=== PATIENT | female | born 1990 | race Caucasian/White ===

== ENCOUNTER → 2016-07-15 | Outpatient (REF) | payer OTHER ==
[~2016-07-15] MED LIST: ACET50TA PO; IBUP80TA PO; PRENTAB43 PO
== END ==
LOC: M LAB REF 16:51
PROVIDERS: ATTEND Advanced Practice Midwife
DX: Z34.83 Encounter for supervision of other normal pregnancy, third trimester (principal)

== ENCOUNTER 2016-08-06 00:33 | Inpatient (IN) | payer OTHER ==
[2016-08-06] VITALS (24 sets, daily range): BP systolic 99–144; BP diastolic 59–86
[~2016-08-06] VITALS: Ht 152.4 cm; Wt 82.0 kg
[2016-08-06] MEDS ORDERED: BENA25TA9 PO (00:59)
[2016-08-06] MEDS ORDERED: LR 1,000 ML IV SCH (01:15)
[2016-08-06] MEDS ORDERED: LACTATED RINGER'S 1000 ML IV STA (01:15)
[2016-08-06 01:39] LABS: MEAN CORPUSCULAR HGB CONC 30.1 g/dl (32.0-36.5); MEAN CORPUSCULAR VOLUME 66.4 fl (80.0-96.0); RED CELL DISTRIBUTION WIDTH 17.7 % (11.5-14.5); WHITE BLOOD COUNT 9.8 K/mm3 (4.0-10.0)
[2016-08-06] MEDS ORDERED: FENTANYL 2MCG/ML ROPIVACAINE 0.2% NACL 250 ML CADD As Ordered ONE (01:41)
--- NOTE | 2016-08-06 01:53 | HPE ---
DATE OF ADMISSION: 08/06/2016 The patient is a 25-year-old 2, para 1-0-0-1 at 39-4/7 weeks gestation with an EDC of 08/09/2016, based on first trimester ultrasound. She presents to labor and delivery today with report of onset of uncomfortable contractions at approximately 21:30. She denies vaginal bleeding and leakage of fluid. Her fetus has been active. care was initiated at [facility] at first trimester. course has been complicated by a history of depression with a desire to start antidepressants immediately . OBSTETRICAL HISTORY: November 12, 2014, at 40 weeks gestation she had a spontaneous vaginal delivery for a 7 pound 6 ounce female. OB LABS: Blood type is AB positive, antibody screen negative, rubella immune, VDRL nonreactive. Hepatitis B surface antigen negative, HIV negative. Hepatitis C nonreactive. Gonorrhea, Chlamydia negative. Gestational diabetic screening 137. GBS is negative. PAST MEDICAL HISTORY: depression, childhood asthma, childhood varicella. FAMILY HISTORY: Hypertension. SURGERIES: Dental surgery. SOCIAL HISTORY: The patient is single. Father of baby is at bedside and supportive. She is a nonsmoker. Denies alcohol and drug use and denies history of abuse physical, sexual and emotional. No history of any sexually transmitted infections. ALLERGIES: No known drug allergies. CURRENT MEDICATIONS: Include vitamins and Colace. OBJECTIVE: Temperature 98.6, pulse 111, respirations 18, BP 120/82. The patient is in distress. She is tense and crying with her contractions. heart rate is 135 with moderate variability, positive accelerations, no decelerations noted, power every 2-4 minutes. Her abdomen is gravid, cephalic presentation, 7.5 to 8 pounds estimated weight. Sterile vaginal exam: 6 cm dilated, 100% effaced, minus two station. ASSESSMENT: 1. Intrauterine at 39-4/7 weeks gestation. 2. heart rate category one. 3. Active labor. PLAN: Admit the patient to labor and delivery. Labs as ordered. Out of bed ad pauly. IV fluid bolus as the patient does desire an epidural for her labor coping. I do anticipate progress and normal spontaneous vaginal delivery.
[2016-08-06] MEDS ORDERED: FENTANYL/ROPIVACAINE/NACL CADD 250 ML EPIDURAL SCH (03:00)
[2016-08-06] MEDS ORDERED: ePHEDrine SULFATE 25 MG/5 ML(5MG/ML) SYRINGE IV PRN (03:00)
[2016-08-06] MEDS ORDERED: EPIDURAL COMMENT XX SCH (03:00)
[2016-08-06] MEDS ORDERED: NALOXONE INJ 0.4 MG/1 ML VIAL (J2310) IV PRN (03:00)
[2016-08-06] MEDS ORDERED: diphenhydrAMINE INJ 50MG/ML VIAL (J1200) IV PRN (03:00)
[2016-08-06] MEDS ORDERED: LACTATED RINGER'S 1000 ML IV PRN (03:00)
[2016-08-06] MEDS ORDERED: EPIDURAL/PCA KEYS XX PRN (03:00)
[2016-08-06] MEDS ORDERED: REFRIGERATOR IV KEYS XX PRN (03:00)
[2016-08-06] MEDS ORDERED: ONDANSETRON 4MG/2ML VIAL (J2405) IV PRN (03:00)
[2016-08-06] MEDS ORDERED: OXYTOCIN 30 UNITS IN 0.9% NaCl 500ML IV BAG (J2590) As Ordered ONE ×2 (03:27→03:28)
[2016-08-06] MEDS ORDERED: OXYTOCIN DRIP 30 UNITS in APPROPRIATE DILUENT 1 EA IV SCH (04:34)
[2016-08-06] MEDS ORDERED: ANUSOL HC CREAM 30GM TOP PRN (04:45)
[2016-08-06] MEDS ORDERED: DIBUCAINE 1% OINTMENT 30GM TOP PRN (04:45)
[2016-08-06] MEDS ORDERED: MEASLES,MUMPS,RUBELLA VACCINE INJ (MMR-II) (90707) SC SCH (04:45)
[2016-08-06] MEDS ORDERED: DOCUSATE SODIUM 100 MG CAP PO PRN (04:45)
[2016-08-06] MEDS ORDERED: RHOGAM 300 MCG (1500 IU) INJ (J2790) IM SCH (04:45)
[2016-08-06] MEDS ORDERED: METHYLERGONOVINE MALEATE 0.2 MG TAB PO PRN (04:45)
--- NOTE | 2016-08-06 05:12 | DN ---
DATE: 08/06/2016 Jennifer is a 25-year-old, 2, para 2-0-0-2 now, who is admitted to labor and delivery in active labor. She utilized an epidural for her labor coping. She progressed to full dilation at 0330 hours. She pushed to a normal spontaneous vaginal delivery of a live female in occiput anterior (OA) position with restitution to left occiput transverse (LOT) position at 0402 hours. There is a nuchal cord times two loose that was removed with a somersault maneuver during delivery. was placed on maternal abdomen crying and active. Her mouth and nares were bulb suctioned. The cord was clamped times two once pulsation ceased and cut by the father of the baby. A manual removal of an intact placenta with three-vessel cord by Paz mechanism was at 0418 hours. Placenta and membranes were inspected, noted to be intact. Uterine hemostasis achieved with uterine fundal massage and intravenous (IV) Pitocin rapid infusion. Estimated blood loss 300 mL. Perineum and vagina inspected and noted to be intact. No repair required. Female infant, score 9/9, weight is pending at this time. Mom is going to breastfeed her daughter and the family have named their daughter Marcia. At the close of delivery, lap counts, instrument counts were correct and verified. [facility]
[2016-08-06] MEDS: PRENATAL VITAMIN TAB PO SCH (08:09)
[2016-08-06] MEDS: buPROPion 75 MG TAB PO SCH (08:10)
[2016-08-06] MEDS: IBUPROFEN 600 MG TAB PO PRN ×2 (08:10→17:47)
[2016-08-06] MEDS: SERTRALINE HCL 50 MG TAB PO SCH (08:10)
[2016-08-06] MEDS: ACETAMINOPHEN 500 MG TAB PO PRN ×2 (12:47→19:34)
[2016-08-07] MEDS ORDERED: diphenhydrAMINE 50 MG CAP PO PRN
[2016-08-07] MEDS: ACETAMINOPHEN 500 MG TAB PO PRN (01:38)
[2016-08-07] MEDS: IBUPROFEN 600 MG TAB PO PRN ×2 (01:38→08:18)
[2016-08-07 06:16] VITALS: BP 122/82
[2016-08-07] MEDS: PRENATAL VITAMIN TAB PO SCH (08:17)
[2016-08-07] MEDS: buPROPion 75 MG TAB PO SCH (08:18)
[2016-08-07] MEDS: SERTRALINE HCL 50 MG TAB PO SCH (08:19)
[2016-08-07] MEDS ORDERED: ZOLO50TA PO (08:39)
[2016-08-07] MEDS ORDERED: WELLTAB38 PO (10:31)
[2016-08-07] MEDS ORDERED: BENA25TA9 PO (10:38)
== END 2016-08-07 13:00 | disposition home or self-care (01) | DRG 560 ==
LOC: M LDO 00:33 → M LDI 01:13 → M OBS 06:23
PROVIDERS: ADMIT Advanced Practice Midwife; ATTEND Advanced Practice Midwife
PROC: 10E0XZZ Delivery of Products of Conception, External Approach (ICD-10-PCS; principal; 2016-08-06)
DX: O69.81X0 Labor and delivery complicated by cord around neck, without compression, not applicable or unspecified (principal); Z37.0 Single live birth; Z3A.39 39 weeks gestation of pregnancy

== ENCOUNTER 2016-08-09 11:37 | Inpatient (IN) | payer OTHER ==
[~2016-08-09] VITALS: Ht 154.9 cm; Wt 80.0 kg
[~2016-08-09 11:37] MED LIST changes: +BENA25TA9 PO; +WELLTAB38 PO; +ZOLO50TA PO
[2016-08-09] MEDS ORDERED: ACETAMINOPHEN 500 MG TAB PO PRN (12:00)
[2016-08-09] MEDS ORDERED: MORPHINE 10 MG/ML 1ML VIAL IV PRN (12:00)
[2016-08-09 12:10] VITALS: BP 124/80
[2016-08-09 12:53] LABS: MEAN CORPUSCULAR VOLUME 66.8 fl (80.0-96.0); RED CELL DISTRIBUTION WIDTH 18.4 % (11.5-14.5); WHITE BLOOD COUNT 9.1 K/mm3 (4.0-10.0)
[2016-08-09] MEDS: LR 1,000 ML IV SCH ×2 (13:22→20:41)
[2016-08-09] MEDS: IBUPROFEN 800 MG TAB PO SCH ×2 (13:23→20:41)
[2016-08-09 13:24] LABS: ALBUMIN 2.6 GM/DL (3.2-5.2); ALKALINE PHOSPHATASE 194 U/L (45-117); ALT/SGPT 17 U/L (12-78); ANION GAP 11 MEQ/L (8-16); AST/SGOT 17 U/L (15-37); BILIRUBIN,TOTAL 0.2 MG/DL (0.2-1.0); BLOOD UREA NITROGEN 6 MG/DL (7-18); CALCIUM LEVEL 8.8 MG/DL (8.5-10.1); CARBON DIOXIDE LEVEL 26 MEQ/L (21-32); CHLORIDE LEVEL 104 MEQ/L (98-107); CREATININE FOR GFR 0.72 MG/DL (0.55-1.02); GLOMERULAR FILTRATION RATE > 60.0 (>60); GLUCOSE, FASTING 87 MG/DL (70-105); POTASSIUM SERUM 4.2 MEQ/L (3.5-5.1); SODIUM LEVEL 141 MEQ/L (136-145); TOTAL PROTEIN 7.8 GM/DL (6.4-8.2)
--- NOTE | 2016-08-09 13:39 | REP ---
PELVIC SONOGRAPHY: HISTORY: endometritis. Question retained products of conception. Status post vaginal delivery August 06, 2016. FINDINGS: Transabdominal scanning demonstrates uterine enlargement as expected post prior. Uterine dimensions are 14.7 x 7.7 x 11.8 cm. Endometrial echo is 0.4 cm thick in the fundus and 1.9 cm thick at mid uterine level. No echogenic material or vascular material is appreciated. Endometrium is somewhat heterogeneous, however. No free fluid is seen. The left ovary could not be seen. Right ovary is normal measuring 2.8 x 1.6 x 1.9 cm. IMPRESSION: Somewhat thickened endometrium but no finding suspicious for retained products of conception seen. Signed by Farzad Nieto MD 08/09/2016 02:35 P
[2016-08-09] MEDS: CLINDAMYCIN 900 MG in APPROPRIATE DILUENT 1 EA IV SCH ×2 (14:03→21:28)
[2016-08-09] MEDS: PERCOCET 5MG/325MG TAB PO PRN ×3 (14:34→23:55)
[2016-08-09] MEDS ORDERED: GENTAMICIN 120 MG in D5W 50 ML IV ONE (15:00)
[2016-08-09 16:00] VITALS: BP 123/74
[2016-08-09 20:00] VITALS: BP 131/86
[2016-08-09] MEDS: FERROUS SULFATE 325MG TAB PO SCH (20:41)
[2016-08-09] MEDS: GENTAMICIN 80 MG in APPROPRIATE DILUENT 1 EA IV SCH (23:54)
[2016-08-10] VITALS: BP 130/96
[2016-08-10] MEDS: IBUPROFEN 800 MG TAB PO SCH ×2 (05:37→13:39)
[2016-08-10] MEDS: LR 1,000 ML IV SCH ×2 (05:37→13:55)
[2016-08-10] MEDS: CLINDAMYCIN 900 MG in APPROPRIATE DILUENT 1 EA IV SCH ×2 (05:37→14:29)
[2016-08-10] MEDS: PERCOCET 5MG/325MG TAB PO PRN ×2 (06:58→15:40)
[2016-08-10] MEDS: GENTAMICIN 80 MG in APPROPRIATE DILUENT 1 EA IV SCH ×2 (06:59→15:37)
[2016-08-10 08:00] VITALS: BP 142/88
[2016-08-10] MEDS: FERROUS SULFATE 325MG TAB PO SCH (09:10)
[2016-08-10] MEDS ORDERED: IBUP600T26 PO (14:37)
[2016-08-10] MEDS ORDERED: FERR325T PO (14:38)
[2016-08-10] MEDS ORDERED: COLA100C PO (14:39)
[2016-08-10] MEDS ORDERED: ZOLO50TA PO (14:44)
[2016-08-10] MEDS ORDERED: WELLTAB38 PO (14:45)
--- NOTE | 2016-08-31 10:29 | DSES ---
DATE OF ADMISSION: 08/09/2016 DATE OF DISCHARGE: 08/10/2016 ADMISSION DIAGNOSIS: endometritis. DISCHARGE DIAGNOSIS: endometritis, clinically improved DISCHARGE SUMMARY: The patient was admitted as a 25-year-old G2, P2 3 days , status post spontaneous vaginal delivery which was notable for manual removal of placenta. This occurred since 08/06/2016. She complained of severe pelvic pain on 08/09 along with fever and diaphoresis. She reported a fever at 6:30 in the morning of 08/06 with a temperature reading of 101.2 Fahrenheit. The patient was treating her pain with Tylenol and ibuprofen. She was also reporting passing small blood clots and increased bleeding over the course of the morning. She was breast-feeding. She denied any shortness breath, chest pain. Given the clinical findings consistent with endometrial, the decision was made perform pelvic ultrasound. Pelvic ultrasound revealed a somewhat thickened endometrium measuring 1.9 cm thick. No echogenic material or vascular material was appreciated on the pelvic ultrasound. There was no finding suspicious for retained products of conception. Her white blood cell count was 9.1, hemoglobin/hematocrit 8.2 and 27.5, platelet count 526. She was admitted and started on IV antibiotics. She was given clindamycin 900 mg every 8 hours and gentamicin 80 mg every 8 hours. Her pain significantly improved over the course of her admission. She was discharged home with routine fever, infectious, pain and bleeding precautions. She was restarted on Wellbutrin for her history of depression as well as Zoloft 50 mg daily. She was given instructions to follow up in the clinic routine or sooner as needed.
== END 2016-08-10 16:50 | disposition home or self-care (01) | DRG 561 ==
LOC: PREOBSVTOIN 12:05 → M PED 12:09
PROVIDERS: ADMIT Specialist; ATTEND Specialist
DX: O86.12 Endometritis following delivery (principal); O99.345 Other mental disorders complicating the puerperium; F53 Mental and behavioral disorders associated with the puerperium, not elsewhere classified

== ENCOUNTER 2016-08-16 20:49 | Emergency (ER) | payer OTHER, SELFPAY ==
[~2016-08-16 20:49] MED LIST changes: +COLA100C PO; +FERR325T PO; +IBUP600T26 PO
[2016-08-16] MEDS ORDERED: IBUPROFEN 600 MG TAB As Ordered ONE (21:07)
[2016-08-16] MEDS ORDERED: ACETAMINOPHEN 325 MG TAB As Ordered ONE (21:08)
[2016-08-16 23:43] LABS: BASO % 0.2 % (0.0-1.0); EOS # 0.1 K/mm3 (0.0-0.50); EOS % 0.7 % (0.0-3.0); LARGE UNSTAINED CELL # 0.1 K/mm3 (0.0-0.4); LARGE UNSTAINED CELL % 0.6 % (0.0-4.0); LYMPH # 0.6 K/mm3 (1.5-6.5); LYMPH % 4.2 % (24.0-44.0); MEAN CORPUSCULAR HEMOGLOBIN 20.2 pg (27.0-33.0); MEAN CORPUSCULAR HGB CONC 29.3 g/dl (32.0-36.5); MEAN CORPUSCULAR VOLUME 68.7 fl (80.0-96.0); MONO # 0.3 K/mm3 (0.0-0.8); MONO % 2.7 % (0.0-5.0); NEUTROPHILS # 11.1 K/mm3 (1.8-7.7); NEUTROPHILS % 91.7 % (36.0-66.0); PLATELET COUNT, AUTOMATED 499 k/mm3 (150-450); RED CELL DISTRIBUTION WIDTH 19.6 % (11.5-14.5); WHITE BLOOD COUNT 12.1 K/mm3 (4.0-10.0)
[2016-08-16 23:47] LABS: ADD MORPHOLOGY? YES
[2016-08-16 23:52] LABS: ALBUMIN 3.2 GM/DL (3.2-5.2); ALBUMIN/GLOBULIN RATIO 0.59 (1.00-1.93); ALKALINE PHOSPHATASE 150 U/L (45-117); ALT/SGPT 16 U/L (12-78); ANION GAP 15 MEQ/L (8-16); AST/SGOT 14 U/L (15-37); BILIRUBIN,DIRECT 0.1 MG/DL (0.0-0.2); BILIRUBIN,TOTAL 0.4 MG/DL (0.2-1.0); BLOOD UREA NITROGEN 10 MG/DL (7-18); CALCIUM LEVEL 8.8 MG/DL (8.5-10.1); CARBON DIOXIDE LEVEL 19 MEQ/L (21-32); CHLORIDE LEVEL 102 MEQ/L (98-107); CREATININE FOR GFR 0.93 MG/DL (0.55-1.02); GLOMERULAR FILTRATION RATE > 60.0 (>60); GLUCOSE, FASTING 103 MG/DL (70-105); POTASSIUM SERUM 3.2 MEQ/L (3.5-5.1); SODIUM LEVEL 136 MEQ/L (136-145); TOTAL PROTEIN 8.6 GM/DL (6.4-8.2)
[2016-08-17] MEDS ORDERED: POTASSIUM CHLORIDE 10 MEQ SR TABLET As Ordered ONE (00:09)
[2016-08-17] MEDS ORDERED: METAL LOCK LOOP XX ONE (00:09)
[2016-08-17 00:14] LABS: ANISOCYTOSIS 2+; HYPOCHROMASIA 3+; OVALOCYTES 1+
--- NOTE | 2016-08-17 00:30 | REPUSA ---
Clinical history: Breast pain. Findings: Real-time ultrasound imaging of the right breast from the 9-1 o'clock position was performe d. Normal heterogeneous fibroglandular tissue is noted. No focal defined mass or cystic lesion is tyra reciated. No evidence of calcifications are appreciated. No other gross abnormalities. Impression: Unremarkable ultrasound examination of the right breast. No mass or fluid collection iden tified. BIRAD 1: Normal study.
[2016-08-17] MEDS ORDERED: ISOVUE-370 76% 100ML VIAL (Q9967) As Ordered ONE (00:38)
--- NOTE | 2016-08-17 01:10 | REPUSA ---
CT angiogram of the chest Clinical statement: shortness of breath. Technique: Multiple axial CT images were obtained from the thoracic inlet through the upper abdomen a fter a bolus administration of nonionic intravenous contrast. Coronal and sagittal reconstructions we re also obtained. No comparison is available. Findings: The pulmonary arteries are well-opacified with contrast, with no intraluminal filling defec ts to suggest embolism. The thoracic aorta is unremarkable. Thyroid gland is within normal limits. Th ere is no thoracic lymphadenopathy. There are no pericardial or pleural effusions. The lungs are zarina r. Limited imaging of the upper abdomen is unremarkable. There are no suspicious osseous lesions. Impression: Unremarkable CT examination of the chest. No evidence of pulmonary embolism.
[2016-08-17] MEDS ORDERED: NORCO, ANEXSIA 5/325MG TABLET (HYDROcodone/ACETAMINOPHEN) As Ordered ONE (01:18)
--- NOTE | 2016-08-17 01:20 | REPUSA ---
CT of the lumbar spine with contrast Clinical history: possible epidural abscess. Technique: Multiple axial CT images were obtained through the lumbar spine. Following administration of nonionic intravenous contrast of contrast. Coronal and sagittal 3-D reconstructed images were also obtained. Findings: The lumbar vertebral bodies are in satisfactory positioning and alignment. No fractures or dislocatio ns are demonstrated. Intervertebral disc spaces are well-maintained. There is no evidence of facet quiros bluxation. The neural foramen appear grossly patent. The spinal canal demonstrates normal caliber and contour without evidence of spinal stenosis. The surrounding soft tissues are within normal limits. No epidural fluid collections are identified. Impression: Unremarkable CT examination of the lumbar spine. No evidence of epidural abscess.
[2016-08-17] MEDS ORDERED: BACTRIM 160MG/800MG DS TAB As Ordered ONE (02:19)
--- NOTE | 2016-08-17 02:32 | EDDOCDS ---
Nurse's Notes [facility] Name: Jennifer Ruiz Age: 25 yrs Sex: Female : 1990 Arrival Date: 08/16/2016 Time: 20:49 Bed I9 / 22 Private MD: Brian Chicas P. Diagnosis: Urinary tract infection following delivery Presentation: 08/16 20:59 Presenting complaint: Patient states: "I think I have mastitis, definitely in the ead right, and possibly in the left." Reports onset of symptoms over last 24 hours. Pt reports pain to bilateral breasts, nausea, and lower back pain. Adult Sepsis Screening: The patient does not have new or worsening altered mentation. Patient's respiratory rate is less than 22. Systolic blood pressure is greater than 100. Patient has a qSOFA score of 0- Negative Sepsis Screen. Suicide/Homicide risk assessment- the patient denies having any suicidal and/or homicidal ideations and does not present with any other emotional, behavioral or mental health complaints. Status: Patient is not a administrative services director or dependent. Transition of care: patient was not received from another setting of care. 20:59 Acuity: SHO Level 3 ead 20:59 Method Of Arrival: Walkin/Carried/Asstd ead 21:02 Presenting complaint: Patient states: pt reports vaginal delivery on 08/06/16. reports ead admitted and discharged from hospital on 08/10/16 for suspected uterine infection after . Triage Assessment: 21:02 General: Appears in no apparent distress, uncomfortable, Behavior is appropriate for ead age, cooperative. Pain: Location: right breast and left breast Pain currently is 6 out of 10 on a pain scale. HIV screening NA for this visit Offered previously. Neurological: No deficits noted. Respiratory: Airway is patent Respiratory effort is even, unlabored. GI: Reports nausea. Derm: Skin is pink, warm & dry. PV INSTALLER TECH: 08/17 01:01 LMP N/A - ld5 Historical: - Allergies: no known allergies; - Home Meds: 1. Wellbutrin XL 150 mg Oral Tb24 1 tab once daily 2. Zoloft 50 mg Oral tab 1 tab once daily 3. ibuprofen 800 mg Oral tab 1 tab 4 times per day (Last dose: 08/16/2016 14:30) 4. Percocet 5-325 mg Oral tab (Last dose: 08/14/2016) - PMHx: Trigeminal Neuralgia; - PSHx: globular mandibular cyst surgery; - Social history: Smoking status: Patient states was never smoker of tobacco. No barriers to communication noted, The patient speaks fluent Hungarian, Speaks appropriately for age. - Family history: Not pertinent. - : The pt / caregiver states he / she is not on anticoagulants. Home medication list is obtained from. - Exposure Risk Screening:: None identified. Screenin:20 Screening information is obtained from the patient. Fall risk: No risks identified. ld5 Assistance ADL's: requires no assistance with activities of daily living. Abuse/DV Screen: The patient / caregiver reports he/she is: not in a situation that causes fear, pain or injury. Nutritional screening: No deficits noted. Advance Directives: There is no active DNR order. home support is adequate. Assessment: 08/16 22:48 General: Appears in no apparent distress, Behavior is appropriate for age, cooperative. dsf Pain: Location: right breast Pain currently is 5 out of 10 on a pain scale. Neurological: Level of Consciousness is awake, alert. Cardiovascular: Capillary refill < 3 seconds. Respiratory: Airway is patent Respiratory effort is even, unlabored, Respiratory pattern is regular, symmetrical. Derm: Skin is dry, Skin is pale, Skin temperature is warm right breast tender to palpation. 08/17 00:19 General: Pt returned from US. Tolerated well but reports increased pain to right ld5 breast. Provider made aware. Will continue to monitor. 01:00 General: Pt returned from CT. Tolerated well. Sitting up in bed with family member at ld5 bedside. Will continue to monitor. 01:22 General: Pt medicated per orders for increased pain. Tolerated well. Temp increased ld5 since last taken. Will continue to monitor. 02:14 General: Pt sitting up in bed. No apparent distress. Awaiting CT results. Will continue ld5 to monitor. Respiratory: Airway is patent Respiratory effort is even, unlabored. Derm: Skin is pale. 02:29 General: Appears in no apparent distress, Behavior is cooperative. Pain: Pain currently ld5 is 3 out of 10 on a pain scale. Neurological: Level of Consciousness is awake, alert. Respiratory: Airway is patent Respiratory effort is even, unlabored. Vital Signs: 08/16 20:50 BP 113 / 74; Pulse 131; Resp 18 S; Temp 102.4(O); Pulse Ox 100% on R/A; Weight 76.2 kg gr2 (R); Height 5 ft. 1 in. (154.94 cm) (R); Pain 8/10; 22:38 BP 104 / 65; Pulse 103; Resp 18; Temp 98.1; Pulse Ox 98% ; Pain 5/10; ajs 08/17 01:13 Temp 99.9(O); ajs 02:29 BP 137 / 86; Pulse 108; Resp 16; Temp 98.6; Pulse Ox 97% on R/A; ld5 08/16 20:50 Body Mass Index 31.74 (76.20 kg, 154.94 cm) gr2 Vitals: 08/16 20:50 Log In Time: August 16, 2016 at 20:50. gr2 ED Course: 20:50 Patient visited by Dash Baron. gr2 20:50 Brian Chicas is Private Physician. gr2 20:50 Patient moved to Waiting gr2 20:52 Patient visited by Dash Baron. gr2 20:52 Patient moved to Pre RCE gr2 21:00 Triage Initiated ead 22:22 Sylvia Hernandez,RN is Primary Nurse. jjr 22:22 Kateryna Villanueva, SYED is Primary Nurse. jjr 22:22 [facility] le 22:22 Patient moved to I jjr 22:29 Patient visited by Keena Paniagua FNP. le 22:30 Patient visited by Keena Paniagua FNP. le 22:39 Patient visited by Rasheeda Schaefer. ajs 22:47 -Blood Culture Sent. dsf 22:47 C Reactive Protein Sent. dsf 22:47 CBC with Diff Sent. dsf 22:47 Lactic Acid (Cervantes tube on ice) Sent. dsf 22:47 Liver Profile Sent. dsf 22:47 MED Profile Sent. dsf 22:48 Inserted saline lock: 18 gauge in left antecubital area The patient tolerated the dsf procedure well. 22:49 Patient visited by Blessing Shelley RN. dsf 22:54 Patient visited by Arcelia, Keena, HEATING AND COOLING TECHNICIAN. le 23:39 Patient name changed from Jennifer\\S\\C\\S\\Ruiz\\S\\ to Jennifer\\S\\Elder\\S\\Ruiz. EDMS 23:46 [facility] Payment Agreement was scanned into [employer] and attached to record. pm4 23:57 Patient moved to Ultrasound dmg 08/17 00:12 Patient moved to I dmg 00:19 UA Sent. ld5 00:20 The patient / caregiver is instructed regarding the plan of care and ED course. ld5 Accompanied by Family Member, Patient has correct armband on for positive identification. Placed in gown. Bed in low position. Call light in reach. 00:21 Patient visited by Mara Martinez RN. ld5 00:[address] dsf 00:50 Patient moved to I dsf 00:50 US breast Returned. EDMS 01:11 Patient visited by Mara Martinez,SYED. ld5 01:13 Patient visited by Rasheeda Schaefer. ajs 01:13 Eliceo Latham DO is Attending Physician. cs11 01:21 CT Chest Angio R/O PE Returned. EDMS 01:23 Patient visited by Mara Martinez,SYED. ld5 02:14 Patient visited by Mara Martinez RN. ld5 02:29 Discontinued lock intact, bleeding controlled, pressure dressing applied, No ld5 redness/swelling at site. No procedures done that require assistance. 02:30 Patient visited by Mara Martinez,SYED. ld5 Administered Medications: 08/16 21:10 Drug: Ibuprofen 600 mg [ibuprofen 600 mg tablet (1 tabs)] Route: PO; ead 23:18 Follow up: Response: Temperature is decreased ld5 21:10 Drug: Acetaminophen 975 mg [acetaminophen 325 mg tablet (3 tabs)] Route: PO; ead 23:18 Follow up: Response: Temperature is decreased ld5 22:47 Drug: NS 0.9% 1000 ml [sodium chloride 0.9 % injection solution] Route: IV; Rate: dsf bolus; Site: left antecubital; 08/17 01:11 Follow up: IV Status: Completed infusion; IV Intake: 1000ml ld5 00:19 Drug: Potassium Chloride 40 mEq [potassium chloride ER 10 mEq tablet,extended release ld5 (4 tabs)] Route: PO; : Drug: HYDROcodone-acetaminophen 1 tabs [hydrocodone 5 mg-acetaminophen 325 mg tablet (1 ld5 tabs)] Route: PO; : Follow up: Response: Confirmed pt not driving.; Pain is decreased ld5 02: Drug: Trimethoprim-Sulfamethoxazole 1 tabs [sulfamethoxazole 800 mg-trimethoprim 160 mg ld5 tablet (1 tabs)] Route: PO; Intake: 01:11 IV: 1000.00ml; Total: 1000.00ml. ld5 Order Results: Lab Order: C Reactive Protein; SPEC'M 08/16/16 22:37 Test: C REACTIVE PROTEIN QUANTITATIV; Value: 5.95; Range: 0.00-0.30; Abnormal: Above high normal; Units: MG/DL; Status: F Lab Order: CBC with Diff; SPEC'M 08/16/16 22:37 Test: WHITE BLOOD COUNT; Value: 12.1; Range: 4.0-10.0; Abnormal: Above high normal; Units: K/mm3; Status: F Test: RED BLOOD COUNT; Value: 4.64; Range: 4.00-5.40; Units: M/mm3; Status: F Test: HEMOGLOBIN; Value: 9.4; Range: 12.0-16.0; Abnormal: Below low normal; Units: g/dl; Status: F Test: HEMATOCRIT; Value: 31.9; Range: 36.0-47.0; Abnormal: Below low normal; Units: %; Status: F Test: MEAN CORPUSCULAR VOLUME; Value: 68.7; Range: 80.0-96.0; Abnormal: Below low normal; Units: fl; Status: F Test: MEAN CORPUSCULAR HEMOGLOBIN; Value: 20.2; Range: 27.0-33.0; Abnormal: Below low normal; Units: pg; Status: F Test: MEAN CORPUSCULAR HGB CONC; Value: 29.3; Range: 32.0-36.5; Abnormal: Below low normal; Units: g/dl; Status: F Test: RED CELL DISTRIBUTION WIDTH; Value: 19.6; Range: 11.5-14.5; Abnormal: Above high normal; Units: %; Status: F Test: PLATELET COUNT, AUTOMATED; Value: 499; Range: 150-450; Abnormal: Above high normal; Units: k/mm3; Status: F Test: NEUTROPHILS %; Value: 91.7; Range: 36.0-66.0; Abnormal: Above high normal; Units: %; Status: F Test: LYMPH %; Value: 4.2; Range: 24.0-44.0; Abnormal: Below low normal; Units: %; Status: F Test: MONO %; Value: 2.7; Range: 0.0-5.0; Units: %; Status: F Test: EOS %; Value: 0.7; Range: 0.0-3.0; Units: %; Status: F Test: BASO %; Value: 0.2; Range: 0.0-1.0; Units: %; Status: F Test: LARGE UNSTAINED CELL %; Value: 0.6; Range: 0.0-4.0; Units: %; Status: F Test: NEUTROPHILS #; Value: 11.1; Range: 1.8-7.7; Abnormal: Above high normal; Units: K/mm3; Status: F Test: LYMPH #; Value: 0.6; Range: 1.5-6.5; Abnormal: Below low normal; Units: K/mm3; Status: F Test: MONO #; Value: 0.3; Range: 0.0-0.8; Units: K/mm3; Status: F Test: EOS #; Value: 0.1; Range: 0.0-0.50; Units: K/mm3; Status: F Test: BASO #; Value: 0.0; Range: 0.0-0.2; Units: K/mm3; Status: F Test: LARGE UNSTAINED CELL #; Value: 0.1; Range: 0.0-0.4; Units: K/mm3; Status: F Lab Order: Lactic Acid (Cervantes tube on ice); SPEC'M 08/16/16 22:37 Test: LACTIC ACID SEPSIS PROTOCOL; Value: 0.8; Range: 0.4-2.0; Units: MMOL/L; Status: F Lab Order: Liver Profile; SPEC'M 08/16/16 22:37 Test: AST/SGOT; Value: 14; Range: 15-37; Abnormal: Below low normal; Units: U/L; Status: F Test: ALT/SGPT; Value: 16; Range: 12-78; Units: U/L; Status: F Test: ALKALINE PHOSPHATASE; Value: 150; Range: 45-117; Abnormal: Above high normal; Units: U/L; Status: F Test: BILIRUBIN,TOTAL; Value: 0.4; Range: 0.2-1.0; Units: MG/DL; Status: F Test: BILIRUBIN,DIRECT; Value: 0.1; Range: 0.0-0.2; Units: MG/DL; Status: F Test: TOTAL PROTEIN; Value: 8.6; Range: 6.4-8.2; Abnormal: Above high normal; Units: GM/DL; Status: F Test: ALBUMIN; Value: 3.2; Range: 3.2-5.2; Units: GM/DL; Status: F Test: ALBUMIN/GLOBULIN RATIO; Value: 0.59; Range: 1.00-1.93; Abnormal: Below low normal; Status: F Lab Order: [facility]; [facility] 08/16/16 22:37 Test: GLUCOSE, FASTING; Value: 103; Range: 70-105; Units: MG/DL; Status: F Test: BLOOD UREA NITROGEN; Value: 10; Range: 7-18; Units: MG/DL; Status: F Test: CREATININE FOR GFR; Value: 0.93; Range: 0.55-1.02; Units: MG/DL; Status: F Test: GLOMERULAR FILTRATION RATE; Value: > 60.0; Range: >60; Status: F Test: SODIUM LEVEL; Value: 136; Range: 136-145; Units: MEQ/L; Status: F Test: POTASSIUM SERUM; Value: 3.2; Range: 3.5-5.1; Abnormal: Below low normal; Units: MEQ/L; Status: F Test: CHLORIDE LEVEL; Value: 102; Range: 98-107; Units: MEQ/L; Status: F Test: CARBON DIOXIDE LEVEL; Value: 19; Range: 21-32; Abnormal: Below low normal; Units: MEQ/L; Status: F Test: ANION GAP; Value: 15; Range: 8-16; Units: MEQ/L; Status: F Test: CALCIUM LEVEL; Value: 8.8; Range: 8.5-10.1; Units: MG/DL; Status: F Test Note: ; Units are mL/min/1.73 m2 Chronic Kidney Disease Staging per NKF: Stage I & II GFR >=60 Normal to Mildly Decreased Stage III GFR 30-59 Moderately Decreased Stage IV GFR 15-29 Severely Decreased Stage V GFR <15 Very Little GFR Left ESRD GFR <15 on REFUELING RAMP ATTENDANT Lab Order: UA; SPEC'M 08/17/16 00:17 Test: APPEARANCE, URINE; Value: CLEAR; Range: CLEAR; Status: F Test: COLOR, URINE; Value: STRAW; Range: YELLOW; Status: F Test: PH,URINE; Value: 5.0; Range: 5.0-9.0; Units: UNITS; Status: F Test: SPECIFIC GRAVITY URINE AUTO; Value: 1.006; Range: 1.002-1.035; Status: F Test: PROTEIN, URINE AUTO; Value: NEGATIVE; Range: NEGATIVE; Units: mg/dL; Status: F Test: GLUCOSE, URINE (UA) AUTO; Value: NEGATIVE; Range: NEGATIVE; Units: mg/dL; Status: F Test: KETONE, URINE AUTO; Value: TRACE; Range: NEGATIVE; Abnormal: Above high normal; Units: mg/dL; Status: F Test: UROBILINOGEN, URINE AUTO; Value: 0.2; Range: 0.0-2.0; Units: mg/dL; Status: F Test: BILIRUBIN, URINE AUTO; Value: NEGATIVE; Range: NEGATIVE; Status: F Test: NITRITE, URINE AUTO; Value: NEGATIVE; Range: NEGATIVE; Status: F Test: LEUKOCYTE ESTERASE, URINE AUTO; Value: 2+; Range: NEGATIVE; Abnormal: Above high normal; Status: F Test: BLOOD, URINE BLOOD; Value: 3+; Range: NEGATIVE; Abnormal: Above high normal; Status: F Test: WBC, URINE AUTO; Value: 26; Range: 0-3; Abnormal: Above high normal; Units: /HPF; Status: F Test: RBC, URINE AUTO; Value: 18; Range: 0-3; Abnormal: Above high normal; Units: /HPF; Status: F Test: BACTERIA, URINE AUTO; Value: NEGATIVE; Range: NEGATIVE; Status: F Test: SQUAMOUS EPITHELIAL CELL UR AU; Value: 0; Range: 0-6; Units: /HPF; Status: F Test: MUCUS, URINE; Value: SMALL; Range: NEGATIVE; Status: F Test: HYALINE CAST, URINE AUTO; Value: 0; Range: 0-1; Units: /LPF; Status: F Lab Order: D-Dimer Quant; [facility] 08/16/16 23:40 Test: D-DIMER QUANT; Value: 1287.3; Range: <500; Abnormal: Above high normal; Units: ng/ml; Status: F Lab Order: ESR; SPEC 08/16/16 22:37 Test: ERYTHROCYTE SEDIMENTATION RATE; Value: 71; Range: 0-20; Abnormal: Above high normal; Units: mm/hr; Status: F Lab Order: RBC MORPH PROF NO CHARGE; SPEC08/16/16 22:37 Test: PLATELET ESTIMATE; Range: NORMAL; Status: I Test: RBC MORPHOLOGY; Value: NORMAL; Status: F Test: HYPOCHROMASIA; Value: 3+; Status: F Test: ANISOCYTOSIS; Value: 2+; Status: F Test: MACROCYTOSIS; Value: 3+; Status: F Test: OVALOCYTES; Value: 1+; Status: F Test: PLATELET ESTIMATE; Value: NORMAL; Range: NORMAL; Status: F Radiology Order: US breast Test: US breast REASON FOR EXAMINATION: possible mastitis, ; ; Clinical history: Breast pain.; Findings: Real-time ultrasound imaging of the right breast from the 9-1 o'clock position was performe; d. Normal heterogeneous fibroglandular tissue is noted. No focal defined mass or cystic lesion is tyra; reciated. No evidence of calcifications are appreciated. No other gross abnormalities.; Impression: Unremarkable ultrasound examination of the right breast. No mass or fluid collection iden; tified.; BIRAD 1: Normal study.; ; Radiology Order: CT Chest Angio R/O PE Test: CT Chest Angio R/O PE REASON FOR EXAMINATION: Shortness of Breath; ; CT angiogram of the chest; Clinical statement: shortness of breath.; Technique: Multiple axial CT images were obtained from the thoracic inlet through the upper abdomen a; fter a bolus administration of nonionic intravenous contrast. Coronal and sagittal reconstructions we; re also obtained.; No comparison is available.; Findings: The pulmonary arteries are well-opacified with contrast, with no intraluminal filling defec; ts to suggest embolism. The thoracic aorta is unremarkable. Thyroid gland is within normal limits. Th; ere is no thoracic lymphadenopathy. There are no pericardial or pleural effusions. The lungs are zarina; r. Limited imaging of the upper abdomen is unremarkable. There are no suspicious osseous lesions.; Impression: Unremarkable CT examination of the chest. No evidence of pulmonary embolism.; ; Outcome: 02:14 Discharge ordered by Provider. cs11 02:29 Discharge Assessment: Patient awake, alert and oriented x 3. No cognitive and/or ld5 functional deficits noted. Patient verbalized understanding of disposition instructions. patient administered narcotics - yes. Pt provided with safe discharge. The following High Risk Discharge criteria are identified: None. Discharged to home ambulatory, with parent. Condition: stable. Discharge instructions given to patient, parents Instructed on discharge instructions, follow up and referral plans. medication usage, Demonstrated understanding of instructions, medications, Pt was receptive of discharge instructions/ teaching. Prescriptions given X 1. CT Study completed. Ultrasound Study completed. Property :Personal belongings accompany Pt. 02:30 Patient left the ED. ld5 Signatures: Dispatcher [employer] EDMS Jerica Rojas [facility] Keena Paniagua, Sylvia Estrella RN Mara Owens RN RN ld5 Blessing Shelley RN RN dsf Rasheeda Schaefer Craig, DO cs11 Dash Baron gr2 Anna Horn RN RN ead Montondo, Paul, Reg Reg pm4 Corrections: (The following items were deleted from the chart) 08/16 22:49 22:48 Derm: Skin is pink, warm & dry. right breast tender to palpation dsf dsf MTDD
--- NOTE | 2016-08-17 02:32 | EDDOCDS ---
Physician Documentation [facility] Name: Jennifer Ruiz Age: 25 yrs Sex: Female : 1990 Arrival Date: 08/16/2016 Time: 20:49 Bed I9 Private MD: Brian Chicas P. Disposition: 08/17/16 02:14 Discharged to Home/Self Care. Impression: Urinary tract infection following delivery. - Condition is Stable. - Prescriptions for Bactrim DS 800- 160 mg Oral Tablet - take 1 tablet by ORAL route every 12 hours for 5 days; 10 tablet. - Medication Reconciliation, Local Pharmacy Hours form. - Follow up: Private Physician; When: Call to arrange an appointment; Reason: Recheck today's complaints. - Problem is an ongoing problem. - Symptoms have improved. Historical: - Allergies: no known allergies; - Home Meds: 1. Wellbutrin XL 150 mg Oral Tb24 1 tab once daily 2. Zoloft 50 mg Oral tab 1 tab once daily 3. ibuprofen 800 mg Oral tab 1 tab 4 times per day (Last dose: 08/16/2016 14:30) 4. Percocet 5-325 mg Oral tab (Last dose: 08/14/2016) - PMHx: Trigeminal Neuralgia; - PSHx: globular mandibular cyst surgery; - Social history: Smoking status: Patient states was never smoker of tobacco. No barriers to communication noted, The patient speaks fluent Urdu, Speaks appropriately for age. - Family history: Not pertinent. - : The pt / caregiver states he / she is not on anticoagulants. Home medication list is obtained from. - Exposure Risk Screening:: None identified. 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 1 in. (154.94 cm) (R); Pain 8/10; 22:38 BP 104 / 65; Pulse 103; Resp 18; Temp 98.1; Pulse Ox 98% ; Pain 5/10; ajs 08/17 01:13 Temp 99.9(O); ajs 02:29 BP 137 / 86; Pulse 108; Resp 16; Temp 98.6; Pulse Ox 97% on R/A; ld5 08/16 20:50 Body Mass Index 31.74 (76.20 kg, 154.94 cm) gr2 MDM: 08/16 21:06 Ibuprofen 600 mg PO once ordered. ead 21:06 Acetaminophen Tablet 975 mg PO once ordered. ead 22:29 -Blood Culture (Adults Only), peripheral from different site, or from device/port/PICC le etc. if present ordered. 22:29 IV Saline Lock ordered. le 22:29 NS 0.9% 1000 ml IV at bolus once ordered. le 22:30 -Blood Culture (Adults Only), peripheral from different site, or from device/port/PICC ml3 etc. if present complete. 22:31 C Reactive Protein Ordered. EDMS 22:31 CBC with Diff Ordered. EDMS 22:31 Lactic Acid (Cervantes tube on ice) Ordered. EDMS 22:31 Liver Profile Ordered. EDMS 22:31 MED Profile Ordered. EDMS 22:31 UA Ordered. EDMS 22:31 -Blood Culture Ordered. EDMS 22:31 BLOOD CULTURES Ordered. EDMS 23:13 D-Dimer Quant Ordered. EDMS 23:14 US breast Ordered. EDMS 23:16 Financial registration complete. pm4 23:17 ESR Ordered. EDMS 23:17 [facility] Order ordered. le 23:20 [facility] Trade [facility] Attorney Order complete. ml3 23:46 [facility] Payment Agreement was scanned into [employer] and attached to record. pm4 23:55 ESR Reviewed. le 23:55 C Reactive Protein Reviewed. le 23:55 CBC with Diff Reviewed. le 23:55 Liver Profile Reviewed. le 23:55 MED Profile Reviewed. le 23:55 Lactic Acid (Cervantes tube on ice) Reviewed. le 23:57 Potassium Chloride Extended Release Tablet 40 mEq PO once ordered. le 08/17 00:36 CBC with Diff Reviewed. cs11 00:36 D-Dimer Quant Reviewed. cs11 00:36 RBC MORPH PROF NO CHARGE Reviewed. cs11 00:38 CT Chest Angio R/O PE Ordered. EDMS 01:14 HYDROcodone-acetaminophen 5 mg-325 mg 1 tabs PO once ordered. cs11 02:11 UA Reviewed. cs11 02:11 US breast Reviewed. cs11 02:11 CT Chest Angio R/O PE Reviewed. cs11 02:15 Trimethoprim-Sulfamethoxazole 160 mg-800 mg (DS) 1 tabs PO once ordered. cs11 Administered Medications: 08/16 21:10 Drug: Ibuprofen 600 mg [ibuprofen 600 mg tablet (1 tabs)] Route: PO; ead 23:18 Follow up: Response: Temperature is decreased ld5 21:10 Drug: Acetaminophen 975 mg [acetaminophen 325 mg tablet (3 tabs)] Route: PO; ead 23:18 Follow up: Response: Temperature is decreased ld5 22:47 Drug: NS 0.9% 1000 ml [sodium chloride 0.9 % injection solution] Route: IV; Rate: dsf bolus; Site: left antecubital; 08/17 01:11 Follow up: IV Status: Completed infusion; IV Intake: 1000ml ld5 00:19 Drug: Potassium Chloride 40 mEq [potassium chloride ER 10 mEq tablet,extended release ld5 (4 tabs)] Route: PO; 01:22 Drug: HYDROcodone-acetaminophen 1 tabs [hydrocodone 5 mg-acetaminophen 325 mg tablet (1 ld5 tabs)] Route: PO; 02:29 Follow up: Response: Confirmed pt not driving.; Pain is decreased ld5 02:29 Drug: Trimethoprim-Sulfamethoxazole 1 tabs [sulfamethoxazole 800 mg-trimethoprim 160 mg ld5 tablet (1 tabs)] Route: PO; Signatures: Dispatcher [employer] EDMS Cuauhtemoc Martinez, Senior Information Security Consultant Unit ml3 Keena Paniagua FNP FNP le Dickerson, Laura, RN RN ld5 Eliceo Latham, DO DO cs11 Anna Horn,RN RN ead Lazaro Stephens, Reg Reg pm4 Blessing Shelley RN dsf The chart was reviewed and I authenticate all verbal orders and agree with the evaluation and treatment provided.Corrections: (The following items were deleted from the chart) 08/16 23:39 23:22 CT Spine, lumbar w/o contrast ordered. EDMS EDMS Attachments: 23:46 [facility] Payment Agreement pm4 MTDD
--- NOTE | 2016-08-19 03:31 | EDDOCDS ---
Physician Documentation [facility] Name: Jennifer Ruiz Age: 25 yrs Sex: Female : 1990 Arrival Date: 08/16/2016 Time: 20:49 Bed I9 Private MD: Brian Chicas P. Disposition: 08/17/16 02:14 Discharged to Home/Self Care. Impression: Urinary tract infection following delivery. - Condition is Stable. - Prescriptions for Bactrim DS 800- 160 mg Oral Tablet - take 1 tablet by ORAL route every 12 hours for 5 days; 10 tablet. - Medication Reconciliation, Local Pharmacy Hours form. - Follow up: Private Physician; When: Call to arrange an appointment; Reason: Recheck today's complaints. - Problem is an ongoing problem. - Symptoms have improved. Historical: - Allergies: no known allergies; - Home Meds: 1. Wellbutrin XL 150 mg Oral Tb24 1 tab once daily 2. Zoloft 50 mg Oral tab 1 tab once daily 3. ibuprofen 800 mg Oral tab 1 tab 4 times per day (Last dose: 08/16/2016 14:30) 4. Percocet 5-325 mg Oral tab (Last dose: 08/14/2016) - PMHx: Trigeminal Neuralgia; - PSHx: globular mandibular cyst surgery; - Social history: Smoking status: Patient states was never smoker of tobacco. No barriers to communication noted, The patient speaks fluent Thai, Speaks appropriately for age. - Family history: Not pertinent. - : The pt / caregiver states he / she is not on anticoagulants. Home medication list is obtained from. - Exposure Risk Screening:: None identified. 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 1 in. (154.94 cm) (R); Pain 8/10; 22:38 BP 104 / 65; Pulse 103; Resp 18; Temp 98.1; Pulse Ox 98% ; Pain 5/10; ajs 08/17 01:13 Temp 99.9(O); ajs 02:29 BP 137 / 86; Pulse 108; Resp 16; Temp 98.6; Pulse Ox 97% on R/A; ld5 08/16 20:50 Body Mass Index 31.74 (76.20 kg, 154.94 cm) gr2 MDM: 08/16 21:06 Ibuprofen 600 mg PO once ordered. ead 21:06 Acetaminophen Tablet 975 mg PO once ordered. ead 22:29 -Blood Culture (Adults Only), peripheral from different site, or from device/port/PICC le etc. if present ordered. 22:29 IV Saline Lock ordered. le 22:29 NS 0.9% 1000 ml IV at bolus once ordered. le 22:30 -Blood Culture (Adults Only), peripheral from different site, or from device/port/PICC ml3 etc. if present complete. 22:31 C Reactive Protein Ordered. EDMS 22:31 CBC with Diff Ordered. EDMS 22:31 Lactic Acid (Cervantes tube on ice) Ordered. EDMS 22:31 Liver Profile Ordered. EDMS 22:31 MED Profile Ordered. EDMS 22:31 UA Ordered. EDMS 22:31 -Blood Culture Ordered. EDMS 22:31 BLOOD CULTURES Ordered. EDMS 23:13 D-Dimer Quant Ordered. EDMS 23:14 US breast Ordered. EDMS 23:16 Financial registration complete. pm4 23:17 ESR Ordered. EDMS 23:17 [facility] ordered. le 23:20 [facility] Paper Bag Inspector Order complete. ml3 23:46 [facility] Payment Agreement was scanned into [employer] and attached to record. pm4 23:55 ESR Reviewed. le 23:55 C Reactive Protein Reviewed. le 23:55 CBC with Diff Reviewed. le 23:55 Liver Profile Reviewed. le 23:55 MED Profile Reviewed. le 23:55 Lactic Acid (Cervantes tube on ice) Reviewed. le 23:57 Potassium Chloride Extended Release Tablet 40 mEq PO once ordered. le 08/17 00:36 CBC with Diff Reviewed. cs11 00:36 D-Dimer Quant Reviewed. cs11 00:36 RBC MORPH PROF NO CHARGE Reviewed. cs11 00:38 CT Chest Angio R/O PE Ordered. EDMS 01:14 HYDROcodone-acetaminophen 5 mg-325 mg 1 tabs PO once ordered. cs11 02:11 UA Reviewed. cs11 02:11 US breast Reviewed. cs11 02:11 CT Chest Angio R/O PE Reviewed. cs11 02:15 Trimethoprim-Sulfamethoxazole 160 mg-800 mg (DS) 1 tabs PO once ordered. cs11 11:10 T-Sheet-- Draft Copy was scanned into [employer] and attached to record. gb Administered Medications: 08/16 21:10 Drug: Ibuprofen 600 mg [ibuprofen 600 mg tablet (1 tabs)] Route: PO; ead 23:18 Follow up: Response: Temperature is decreased ld5 21:10 Drug: Acetaminophen 975 mg [acetaminophen 325 mg tablet (3 tabs)] Route: PO; ead 23:18 Follow up: Response: Temperature is decreased ld5 22:47 Drug: NS 0.9% 1000 ml [sodium chloride 0.9 % injection solution] Route: IV; Rate: dsf bolus; Site: left antecubital; 08/17 01:11 Follow up: IV Status: Completed infusion; IV Intake: 1000ml ld5 00:19 Drug: Potassium Chloride 40 mEq [potassium chloride ER 10 mEq tablet,extended release ld5 (4 tabs)] Route: PO; 01:22 Drug: HYDROcodone-acetaminophen 1 tabs [hydrocodone 5 mg-acetaminophen 325 mg tablet (1 ld5 tabs)] Route: PO; 02:29 Follow up: Response: Confirmed pt not driving.; Pain is decreased ld5 02:29 Drug: Trimethoprim-Sulfamethoxazole 1 tabs [sulfamethoxazole 800 mg-trimethoprim 160 mg ld5 tablet (1 tabs)] Route: PO; Signatures: Dispatcher [employer] EDMS Magy Garcia, Reg Reg gb Cuauhtemoc Martinez, Director Of Retail Marketing Unit ml3 Keena Paniagua, Mara Serna RN RN ld5 Eliceo Latham, DO cs11 Anna Horn,RN RN ead Lazaro Stephens, Reg Reg pm4 Blessing Shelley RNf The chart was reviewed and I authenticate all verbal orders and agree with the evaluation and treatment provided.Corrections: (The following items were deleted from the chart) 08/16 23:39 23:22 CT Spine, lumbar w/o contrast ordered. EDMS EDMS Attachments: 23:46 [facility] Payment Agreement pm4 08/17 11:10 T-Sheet-- Draft Copy gb Chart Complete MTDD
--- NOTE | 2016-08-19 03:31 | EDDOCDS ---
Nurse's Notes [facility] Name: Jennifer Ruiz Age: 25 yrs Sex: Female : 1990 Arrival Date: 08/16/2016 Time: 20:49 Bed I9 / 22 Private MD: Brian Chicas P. Diagnosis: Urinary tract infection following delivery Presentation: 08/16 20:59 Presenting complaint: Patient states: "I think I have mastitis, definitely in the ead right, and possibly in the left." Reports onset of symptoms over last 24 hours. Pt reports pain to bilateral breasts, nausea, and lower back pain. Adult Sepsis Screening: The patient does not have new or worsening altered mentation. Patient's respiratory rate is less than 22. Systolic blood pressure is greater than 100. Patient has a qSOFA score of 0- Negative Sepsis Screen. Suicide/Homicide risk assessment- the patient denies having any suicidal and/or homicidal ideations and does not present with any other emotional, behavioral or mental health complaints. Status: Patient is not a electromedical service engineer or dependent. Transition of care: patient was not received from another setting of care. 20:59 Acuity: SHO Level 3 ead 20:59 Method Of Arrival: Walkin/Carried/Asstd ead 21:02 Presenting complaint: Patient states: pt reports vaginal delivery on 08/06/16. reports ead admitted and discharged from hospital on 08/10/16 for suspected uterine infection after . Triage Assessment: 21:02 General: Appears in no apparent distress, uncomfortable, Behavior is appropriate for ead age, cooperative. Pain: Location: right breast and left breast Pain currently is 6 out of 10 on a pain scale. HIV screening NA for this visit Offered previously. Neurological: No deficits noted. Respiratory: Airway is patent Respiratory effort is even, unlabored. GI: Reports nausea. Derm: Skin is pink, warm & dry. SLACK LINE YARDER: 08/17 01:01 LMP N/A - ld5 Historical: - Allergies: no known allergies; - Home Meds: 1. Wellbutrin XL 150 mg Oral Tb24 1 tab once daily 2. Zoloft 50 mg Oral tab 1 tab once daily 3. ibuprofen 800 mg Oral tab 1 tab 4 times per day (Last dose: 08/16/2016 14:30) 4. Percocet 5-325 mg Oral tab (Last dose: 08/14/2016) - PMHx: Trigeminal Neuralgia; - PSHx: globular mandibular cyst surgery; - Social history: Smoking status: Patient states was never smoker of tobacco. No barriers to communication noted, The patient speaks fluent Bengali, Speaks appropriately for age. - Family history: Not pertinent. - : The pt / caregiver states he / she is not on anticoagulants. Home medication list is obtained from. - Exposure Risk Screening:: None identified. Screenin:20 Screening information is obtained from the patient. Fall risk: No risks identified. ld5 Assistance ADL's: requires no assistance with activities of daily living. Abuse/DV Screen: The patient / caregiver reports he/she is: not in a situation that causes fear, pain or injury. Nutritional screening: No deficits noted. Advance Directives: There is no active DNR order. home support is adequate. Assessment: 08/16 22:48 General: Appears in no apparent distress, Behavior is appropriate for age, cooperative. dsf Pain: Location: right breast Pain currently is 5 out of 10 on a pain scale. Neurological: Level of Consciousness is awake, alert. Cardiovascular: Capillary refill < 3 seconds. Respiratory: Airway is patent Respiratory effort is even, unlabored, Respiratory pattern is regular, symmetrical. Derm: Skin is dry, Skin is pale, Skin temperature is warm right breast tender to palpation. 08/17 00:19 General: Pt returned from US. Tolerated well but reports increased pain to right ld5 breast. Provider made aware. Will continue to monitor. 01:00 General: Pt returned from CT. Tolerated well. Sitting up in bed with family member at ld5 bedside. Will continue to monitor. 01:22 General: Pt medicated per orders for increased pain. Tolerated well. Temp increased ld5 since last taken. Will continue to monitor. 02:14 General: Pt sitting up in bed. No apparent distress. Awaiting CT results. Will continue ld5 to monitor. Respiratory: Airway is patent Respiratory effort is even, unlabored. Derm: Skin is pale. 02:29 General: Appears in no apparent distress, Behavior is cooperative. Pain: Pain currently ld5 is 3 out of 10 on a pain scale. Neurological: Level of Consciousness is awake, alert. Respiratory: Airway is patent Respiratory effort is even, unlabored. Vital Signs: 08/16 20:50 BP 113 / 74; Pulse 131; Resp 18 S; Temp 102.4(O); Pulse Ox 100% on R/A; Weight 76.2 kg gr2 (R); Height 5 ft. 1 in. (154.94 cm) (R); Pain 8/10; 22:38 BP 104 / 65; Pulse 103; Resp 18; Temp 98.1; Pulse Ox 98% ; Pain 5/10; ajs 08/17 01:13 Temp 99.9(O); ajs 02:29 BP 137 / 86; Pulse 108; Resp 16; Temp 98.6; Pulse Ox 97% on R/A; ld5 08/16 20:50 Body Mass Index 31.74 (76.20 kg, 154.94 cm) gr2 Vitals: 08/16 20:50 Log In Time: August 16, 2016 at 20:50. gr2 ED Course: 20:50 Patient visited by Dash Baron. gr2 20:50 Brian Chicas is Private Physician. gr2 20:50 Patient moved to Waiting gr2 20:52 Patient visited by Dash Baron. gr2 20:52 Patient moved to Pre RCE gr2 21:00 Triage Initiated ead 22:22 Sylvia Hernandez,RN is Primary Nurse. jjr 22:22 Kateryna Villanueva, SYED is Primary Nurse. jjr 22:22 Keena Paniagua FNP is [facility]. le 22:22 Patient moved to I jjr 22:29 Patient visited by Keena Paniagua FNP. le 22:30 Patient visited by Keena Paniagua FNP. le 22:39 Patient visited by Rasheeda Schaefer. ajs 22:47 -Blood Culture Sent. dsf 22:47 C Reactive Protein Sent. dsf 22:47 CBC with Diff Sent. dsf 22:47 Lactic Acid (Cervantes tube on ice) Sent. dsf 22:47 Liver Profile Sent. dsf 22:47 MED Profile Sent. dsf 22:48 Inserted saline lock: 18 gauge in left antecubital area The patient tolerated the dsf procedure well. 22:49 Patient visited by Blessing Shelley RN. dsf 22:54 Patient visited by Arcelia, Keena, YOGA INSTRUCTOR. le 23:39 Patient name changed from Jennifer\\S\\C\\S\\Ruiz\\S\\ to Jennifer\\S\\Elder\\S\\Ruiz. EDMS 23:46 [facility] Payment Agreement was scanned into [employer] and attached to record. pm4 23:57 Patient moved to Ultrasound dmg 08/17 00:12 Patient moved to I dmg 00:19 UA Sent. ld5 00:20 The patient / caregiver is instructed regarding the plan of care and ED course. ld5 Accompanied by Family Member, Patient has correct armband on for positive identification. Placed in gown. Bed in low position. Call light in reach. 00:21 Patient visited by Mara Martinez,SYED. ld5 00:[address] dsf 00:50 Patient moved to I dsf 00:50 US breast Returned. EDMS 01:11 Patient visited by Mara Martinez,SYED. ld5 01:13 Patient visited by Rasheeda Schaefer. ajs 01:13 Eliceo Latham DO is Attending Physician. cs11 01:21 CT Chest Angio R/O PE Returned. EDMS 01:23 Patient visited by Mara Martinez,SYED. ld5 02:14 Patient visited by Mara Martinez,SYED. ld5 02:29 Discontinued lock intact, bleeding controlled, pressure dressing applied, No ld5 redness/swelling at site. No procedures done that require assistance. 02:30 Patient visited by Mara Martinez,SYED. ld5 11:10 T-Sheet-- Draft Copy was scanned into [employer] and attached to record. gb Administered Medications: 08/16 21:10 Drug: Ibuprofen 600 mg [ibuprofen 600 mg tablet (1 tabs)] Route: PO; ead 23:18 Follow up: Response: Temperature is decreased ld5 21:10 Drug: Acetaminophen 975 mg [acetaminophen 325 mg tablet (3 tabs)] Route: PO; ead 23:18 Follow up: Response: Temperature is decreased ld5 22:47 Drug: NS 0.9% 1000 ml [sodium chloride 0.9 % injection solution] Route: IV; Rate: dsf bolus; Site: left antecubital; 08/17 01:11 Follow up: IV Status: Completed infusion; IV Intake: 1000ml ld5 00:19 Drug: Potassium Chloride 40 mEq [potassium chloride ER 10 mEq tablet,extended release ld5 (4 tabs)] Route: PO; 01:22 Drug: HYDROcodone-acetaminophen 1 tabs [hydrocodone 5 mg-acetaminophen 325 mg tablet (1 ld5 tabs)] Route: PO; 02:29 Follow up: Response: Confirmed pt not driving.; Pain is decreased ld5 02:29 Drug: Trimethoprim-Sulfamethoxazole 1 tabs [sulfamethoxazole 800 mg-trimethoprim 160 mg ld5 tablet (1 tabs)] Route: PO; Intake: 01:11 IV: 1000.00ml; Total: 1000.00ml. ld5 Order Results: Lab Order: -Blood Culture; SPEC'M 08/16/16 22:37 Test: BLOOD CULTURE; Value: No growth after 24 hours . All specimens observed; Status: F Test: BLOOD CULTURE; Value: for 5 days. Results final at that time.; Status: F Test: BLOOD CULTURE; Value: No Growth after 48 hours. All Specimens observed; Status: F Test: BLOOD CULTURE; Value: for 7 days. Results final at that time.; Status: F Lab Order: C Reactive Protein; SPEC'M 08/16/16 22:37 Test: C REACTIVE PROTEIN QUANTITATIV; Value: 5.95; Range: 0.00-0.30; Abnormal: Above high normal; Units: MG/DL; Status: F Lab Order: CBC with Diff; SPEC'M 08/16/16 22:37 Test: WHITE BLOOD COUNT; Value: 12.1; Range: 4.0-10.0; Abnormal: Above high normal; Units: K/mm3; Status: F Test: RED BLOOD COUNT; Value: 4.64; Range: 4.00-5.40; Units: M/mm3; Status: F Test: HEMOGLOBIN; Value: 9.4; Range: 12.0-16.0; Abnormal: Below low normal; Units: g/dl; Status: F Test: HEMATOCRIT; Value: 31.9; Range: 36.0-47.0; Abnormal: Below low normal; Units: %; Status: F Test: MEAN CORPUSCULAR VOLUME; Value: 68.7; Range: 80.0-96.0; Abnormal: Below low normal; Units: fl; Status: F Test: MEAN CORPUSCULAR HEMOGLOBIN; Value: 20.2; Range: 27.0-33.0; Abnormal: Below low normal; Units: pg; Status: F Test: MEAN CORPUSCULAR HGB CONC; Value: 29.3; Range: 32.0-36.5; Abnormal: Below low normal; Units: g/dl; Status: F Test: RED CELL DISTRIBUTION WIDTH; Value: 19.6; Range: 11.5-14.5; Abnormal: Above high normal; Units: %; Status: F Test: PLATELET COUNT, AUTOMATED; Value: 499; Range: 150-450; Abnormal: Above high normal; Units: k/mm3; Status: F Test: NEUTROPHILS %; Value: 91.7; Range: 36.0-66.0; Abnormal: Above high normal; Units: %; Status: F Test: LYMPH %; Value: 4.2; Range: 24.0-44.0; Abnormal: Below low normal; Units: %; Status: F Test: MONO %; Value: 2.7; Range: 0.0-5.0; Units: %; Status: F Test: EOS %; Value: 0.7; Range: 0.0-3.0; Units: %; Status: F Test: BASO %; Value: 0.2; Range: 0.0-1.0; Units: %; Status: F Test: LARGE UNSTAINED CELL %; Value: 0.6; Range: 0.0-4.0; Units: %; Status: F Test: NEUTROPHILS #; Value: 11.1; Range: 1.8-7.7; Abnormal: Above high normal; Units: K/mm3; Status: F Test: LYMPH #; Value: 0.6; Range: 1.5-6.5; Abnormal: Below low normal; Units: K/mm3; Status: F Test: MONO #; Value: 0.3; Range: 0.0-0.8; Units: K/mm3; Status: F Test: EOS #; Value: 0.1; Range: 0.0-0.50; Units: K/mm3; Status: F Test: BASO #; Value: 0.0; Range: 0.0-0.2; Units: K/mm3; Status: F Test: LARGE UNSTAINED CELL #; Value: 0.1; Range: 0.0-0.4; Units: K/mm3; Status: F Lab Order: Lactic Acid (Cervantes tube on ice); [facility] 08/16/16 22:37 Test: LACTIC ACID SEPSIS PROTOCOL; Value: 0.8; Range: 0.4-2.0; Units: MMOL/L; Status: F Lab Order: Liver Profile; [facility] 08/16/16 22:37 Test: AST/SGOT; Value: 14; Range: 15-37; Abnormal: Below low normal; Units: U/L; Status: F Test: ALT/SGPT; Value: 16; Range: 12-78; Units: U/L; Status: F Test: ALKALINE PHOSPHATASE; Value: 150; Range: 45-117; Abnormal: Above high normal; Units: U/L; Status: F Test: BILIRUBIN,TOTAL; Value: 0.4; Range: 0.2-1.0; Units: MG/DL; Status: F Test: BILIRUBIN,DIRECT; Value: 0.1; Range: 0.0-0.2; Units: MG/DL; Status: F Test: TOTAL PROTEIN; Value: 8.6; Range: 6.4-8.2; Abnormal: Above high normal; Units: GM/DL; Status: F Test: ALBUMIN; Value: 3.2; Range: 3.2-5.2; Units: GM/DL; Status: F Test: ALBUMIN/GLOBULIN RATIO; Value: 0.59; Range: 1.00-1.93; Abnormal: Below low normal; Status: F Lab Order: MED Profile; [facility] 08/16/16 22:37 Test: GLUCOSE, FASTING; Value: 103; Range: 70-105; Units: MG/DL; Status: F Test: BLOOD UREA NITROGEN; Value: 10; Range: 7-18; Units: MG/DL; Status: F Test: CREATININE FOR GFR; Value: 0.93; Range: 0.55-1.02; Units: MG/DL; Status: F Test: GLOMERULAR FILTRATION RATE; Value: > 60.0; Range: >60; Status: F Test: SODIUM LEVEL; Value: 136; Range: 136-145; Units: MEQ/L; Status: F Test: POTASSIUM SERUM; Value: 3.2; Range: 3.5-5.1; Abnormal: Below low normal; Units: MEQ/L; Status: F Test: CHLORIDE LEVEL; Value: 102; Range: 98-107; Units: MEQ/L; Status: F Test: CARBON DIOXIDE LEVEL; Value: 19; Range: 21-32; Abnormal: Below low normal; Units: MEQ/L; Status: F Test: ANION GAP; Value: 15; Range: 8-16; Units: MEQ/L; Status: F Test: CALCIUM LEVEL; Value: 8.8; Range: 8.5-10.1; Units: MG/DL; Status: F Test Note: ; Units are mL/min/1.73 m2 Chronic Kidney Disease Staging per NKF: Stage I & II GFR >=60 Normal to Mildly Decreased Stage III GFR 30-59 Moderately Decreased Stage IV GFR 15-29 Severely Decreased Stage V GFR <15 Very Little GFR Left ESRD GFR <15 on DECORATING MACHINE OPERATOR Lab Order: UA; SPEC'M 08/17/16 00:17 Test: APPEARANCE, URINE; Value: CLEAR; Range: CLEAR; Status: F Test: COLOR, URINE; Value: STRAW; Range: YELLOW; Status: F Test: PH,URINE; Value: 5.0; Range: 5.0-9.0; Units: UNITS; Status: F Test: SPECIFIC GRAVITY URINE AUTO; Value: 1.006; Range: 1.002-1.035; Status: F Test: PROTEIN, URINE AUTO; Value: NEGATIVE; Range: NEGATIVE; Units: mg/dL; Status: F Test: GLUCOSE, URINE (UA) AUTO; Value: NEGATIVE; Range: NEGATIVE; Units: mg/dL; Status: F Test: KETONE, URINE AUTO; Value: TRACE; Range: NEGATIVE; Abnormal: Above high normal; Units: mg/dL; Status: F Test: UROBILINOGEN, URINE AUTO; Value: 0.2; Range: 0.0-2.0; Units: mg/dL; Status: F Test: BILIRUBIN, URINE AUTO; Value: NEGATIVE; Range: NEGATIVE; Status: F Test: NITRITE, URINE AUTO; Value: NEGATIVE; Range: NEGATIVE; Status: F Test: LEUKOCYTE ESTERASE, URINE AUTO; Value: 2+; Range: NEGATIVE; Abnormal: Above high normal; Status: F Test: BLOOD, URINE BLOOD; Value: 3+; Range: NEGATIVE; Abnormal: Above high normal; Status: F Test: WBC, URINE AUTO; Value: 26; Range: 0-3; Abnormal: Above high normal; Units: /HPF; Status: F Test: RBC, URINE AUTO; Value: 18; Range: 0-3; Abnormal: Above high normal; Units: /HPF; Status: F Test: BACTERIA, URINE AUTO; Value: NEGATIVE; Range: NEGATIVE; Status: F Test: SQUAMOUS EPITHELIAL CELL UR AU; Value: 0; Range: 0-6; Units: /HPF; Status: F Test: MUCUS, URINE; Value: SMALL; Range: NEGATIVE; Status: F Test: HYALINE CAST, URINE AUTO; Value: 0; Range: 0-1; Units: /LPF; Status: F Lab Order: BLOOD CULTURES; [facility] 08/16/16 23:40 Test: BLOOD CULTURE; Value: No growth after 24 hours . All specimens observed; Status: F Test: BLOOD CULTURE; Value: for 5 days. Results final at that time.; Status: F Test: BLOOD CULTURE; Value: No Growth after 48 hours. All Specimens observed; Status: F Test: BLOOD CULTURE; Value: for 7 days. Results final at that time.; Status: F Lab Order: D-Dimer Quant; [facility] 08/16/16 23:40 Test: D-DIMER QUANT; Value: 1287.3; Range: <500; Abnormal: Above high normal; Units: ng/ml; Status: F Lab Order: ESR; [facility] 08/16/16 22:37 Test: ERYTHROCYTE SEDIMENTATION RATE; Value: 71; Range: 0-20; Abnormal: Above high normal; Units: mm/hr; Status: F Lab Order: RBC MORPH PROF NO CHARGE; [facility] 08/16/16 22:37 Test: PLATELET ESTIMATE; Range: NORMAL; Status: I Test: RBC MORPHOLOGY; Value: NORMAL; Status: F Test: HYPOCHROMASIA; Value: 3+; Status: F Test: ANISOCYTOSIS; Value: 2+; Status: F Test: MACROCYTOSIS; Value: 3+; Status: F Test: OVALOCYTES; Value: 1+; Status: F Test: PLATELET ESTIMATE; Value: NORMAL; Range: NORMAL; Status: F Radiology Order: US breast Test: US breast REASON FOR EXAMINATION: possible mastitis, ; ; Clinical history: Breast pain.; Findings: Real-time ultrasound imaging of the right breast from the 1 o'clock position was performe; d. Normal heterogeneous fibroglandular tissue is noted. No focal defined mass or cystic lesion is tyra; reciated. No evidence of calcifications are appreciated. No other gross abnormalities.; Impression: Unremarkable ultrasound examination of the right breast. No mass or fluid collection iden; tified.; BIRAD 1: Normal study.; ; Radiology Order: CT Chest Angio R/O PE Test: CT Chest Angio R/O PE REASON FOR EXAMINATION: Shortness of Breath; ; CT angiogram of the chest; Clinical statement: shortness of breath.; Technique: Multiple axial CT images were obtained from the thoracic inlet through the upper abdomen a; fter a bolus administration of nonionic intravenous contrast. Coronal and sagittal reconstructions we; re also obtained.; No comparison is available.; Findings: The pulmonary arteries are well-opacified with contrast, with no intraluminal filling defec; ts to suggest embolism. The thoracic aorta is unremarkable. Thyroid gland is within normal limits. Th; ere is no thoracic lymphadenopathy. There are no pericardial or pleural effusions. The lungs are zarina; r. Limited imaging of the upper abdomen is unremarkable. There are no suspicious osseous lesions.; Impression: Unremarkable CT examination of the chest. No evidence of pulmonary embolism.; ; Outcome: 02:14 Discharge ordered by Provider. cs11 02:29 Discharge Assessment: Patient awake, alert and oriented x 3. No cognitive and/or ld5 functional deficits noted. Patient verbalized understanding of disposition instructions. patient administered narcotics - yes. Pt provided with safe discharge. The following High Risk Discharge criteria are identified: None. Discharged to home ambulatory, with parent. Condition: stable. Discharge instructions given to patient, parents Instructed on discharge instructions, follow up and referral plans. medication usage, Demonstrated understanding of instructions, medications, Pt was receptive of discharge instructions/ teaching. Prescriptions given X 1. CT Study completed. Ultrasound Study completed. Property :Personal belongings accompany Pt. 02:30 Patient left the ED. ld5 Signatures: Dispatcher [employer] Jerica Tejeda Gloria, Reg Reg Keena Horne, YOGA INSTRUCTOR YOGA INSTRUCTOR Sylvia Negrete RN RN Mara Funes RN RN ld5 Fuller, Desiree, RN RN dsf Rasheeda Schaefer Craig, DO DO cs11 Dash aBron gr2 Anna Horn,SYED RN Lazaro Bonilla, Reg Reg pm4 Corrections: (The following items were deleted from the chart) 08/16 22:49 22:48 Derm: Skin is pink, warm & dry. right breast tender to palpation dsf dsf Chart Complete MTDD
--- NOTE | 2016-08-19 03:31 | EDDOCDS ---
Physician Documentation [facility] Name: Jennifer Ruiz Age: 25 yrs Sex: Female : 1990 Arrival Date: 08/16/2016 Time: 20:49 Bed I9 Private MD: Brian Chicas P. Disposition: 08/17/16 02:14 Discharged to Home/Self Care. Impression: Urinary tract infection following delivery. - Condition is Stable. - Prescriptions for Bactrim DS 800- 160 mg Oral Tablet - take 1 tablet by ORAL route every 12 hours for 5 days; 10 tablet. - Medication Reconciliation, Local Pharmacy Hours form. - Follow up: Private Physician; When: Call to arrange an appointment; Reason: Recheck today's complaints. - Problem is an ongoing problem. - Symptoms have improved. Historical: - Allergies: no known allergies; - Home Meds: 1. Wellbutrin XL 150 mg Oral Tb24 1 tab once daily 2. Zoloft 50 mg Oral tab 1 tab once daily 3. ibuprofen 800 mg Oral tab 1 tab 4 times per day (Last dose: 08/16/2016 14:30) 4. Percocet 5-325 mg Oral tab (Last dose: 08/14/2016) - PMHx: Trigeminal Neuralgia; - PSHx: globular mandibular cyst surgery; - Social history: Smoking status: Patient states was never smoker of tobacco. No barriers to communication noted, The patient speaks fluent Slovenian, Speaks appropriately for age. - Family history: Not pertinent. - : The pt / caregiver states he / she is not on anticoagulants. Home medication list is obtained from. - Exposure Risk Screening:: None identified. 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 1 in. (154.94 cm) (R); Pain 8/10; 22:38 BP 104 / 65; Pulse 103; Resp 18; Temp 98.1; Pulse Ox 98% ; Pain 5/10; ajs 08/17 01:13 Temp 99.9(O); ajs 02:29 BP 137 / 86; Pulse 108; Resp 16; Temp 98.6; Pulse Ox 97% on R/A; ld5 08/16 20:50 Body Mass Index 31.74 (76.20 kg, 154.94 cm) gr2 MDM: 08/16 21:06 Ibuprofen 600 mg PO once ordered. ead 21:06 Acetaminophen Tablet 975 mg PO once ordered. ead 22:29 -Blood Culture (Adults Only), peripheral from different site, or from device/port/PICC le etc. if present ordered. 22:29 IV Saline Lock ordered. le 22:29 NS 0.9% 1000 ml IV at bolus once ordered. le 22:30 -Blood Culture (Adults Only), peripheral from different site, or from device/port/PICC ml3 etc. if present complete. 22:31 C Reactive Protein Ordered. EDMS 22:31 CBC with Diff Ordered. EDMS 22:31 Lactic Acid (Cervantes tube on ice) Ordered. EDMS 22:31 Liver Profile Ordered. EDMS 22:31 MED Profile Ordered. EDMS 22:31 UA Ordered. EDMS 22:31 -Blood Culture Ordered. EDMS 22:31 BLOOD CULTURES Ordered. EDMS 23:13 D-Dimer Quant Ordered. EDMS 23:14 US breast Ordered. EDMS 23:16 Financial registration complete. pm4 23:17 ESR Ordered. EDMS 23:[facility] Order ordered. le 23:20 [facility] Order complete. ml3 23:46 [facility] Payment Agreement was scanned into [employer] and attached to record. pm4 23:55 ESR Reviewed. le 23:55 C Reactive Protein Reviewed. le 23:55 CBC with Diff Reviewed. le 23:55 Liver Profile Reviewed. le 23:55 MED Profile Reviewed. le 23:55 Lactic Acid (Cervantes tube on ice) Reviewed. le 23:57 Potassium Chloride Extended Release Tablet 40 mEq PO once ordered. le 08/17 00:36 CBC with Diff Reviewed. cs11 00:36 D-Dimer Quant Reviewed. cs11 00:36 RBC MORPH PROF NO CHARGE Reviewed. cs11 00:38 CT Chest Angio R/O PE Ordered. EDMS 01:14 HYDROcodone-acetaminophen 5 mg-325 mg 1 tabs PO once ordered. cs11 02:11 UA Reviewed. cs11 02:11 US breast Reviewed. cs11 02:11 CT Chest Angio R/O PE Reviewed. cs11 02:15 Trimethoprim-Sulfamethoxazole 160 mg-800 mg (DS) 1 tabs PO once ordered. cs11 11:10 T-Sheet-- Draft Copy was scanned into [employer] and attached to record. gb Administered Medications: 08/16 21:10 Drug: Ibuprofen 600 mg [ibuprofen 600 mg tablet (1 tabs)] Route: PO; ead 23:18 Follow up: Response: Temperature is decreased ld5 21:10 Drug: Acetaminophen 975 mg [acetaminophen 325 mg tablet (3 tabs)] Route: PO; ead 23:18 Follow up: Response: Temperature is decreased ld5 22:47 Drug: NS 0.9% 1000 ml [sodium chloride 0.9 % injection solution] Route: IV; Rate: dsf bolus; Site: left antecubital; 08/17 01:11 Follow up: IV Status: Completed infusion; IV Intake: 1000ml ld5 00:19 Drug: Potassium Chloride 40 mEq [potassium chloride ER 10 mEq tablet,extended release ld5 (4 tabs)] Route: PO; 01:22 Drug: HYDROcodone-acetaminophen 1 tabs [hydrocodone 5 mg-acetaminophen 325 mg tablet (1 ld5 tabs)] Route: PO; 02:29 Follow up: Response: Confirmed pt not driving.; Pain is decreased ld5 02:29 Drug: Trimethoprim-Sulfamethoxazole 1 tabs [sulfamethoxazole 800 mg-trimethoprim 160 mg ld5 tablet (1 tabs)] Route: PO; Signatures: Dispatcher [employer] EDMS Magy Garcia, Reg Reg gb Cuauhtemoc Martinez, Community Coordinator Unit ml3 Keena Paniagua, Mara Serna RN RN ld5 Eliceo Latham, DO cs11 Anna Horn,RN RN ead Lazaro Stephens, Reg Reg pm4 Blessing Shelley RNf The chart was reviewed and I authenticate all verbal orders and agree with the evaluation and treatment provided.Corrections: (The following items were deleted from the chart) 08/16 23:39 23:22 CT Spine, lumbar w/o contrast ordered. EDMS EDMS Attachments: 23:46 [facility] Payment Agreement pm4 08/17 11:10 T-Sheet-- Draft Copy gb Chart Complete MTDD
== END 2016-08-17 02:30 | disposition home or self-care (01) ==
LOC: M ED 20:49
DX: N39.0 Urinary tract infection, site not specified (principal); G50.0 Trigeminal neuralgia; Z79.899 Other long term (current) drug therapy
CPT/HCPCS: 71275; 72132; 76642; 80048; 80076; 81001; 83605; 85025; 85379; 85652; 86140; 87040; 96360; 96361; 99284; Q9967

== ENCOUNTER → 2016-12-06 | Outpatient (REF) | payer OTHER ==
[~2016-12-06] MED LIST changes: -COLA100C PO; +COLA100C3 PO; +MULT1TAB10 PO; +OXYC1TAB23 PO
[2016-12-06 17:50] LABS: VITAMIN B12 LEVEL 873 PG/ML
[2016-12-06 17:51] LABS: ALBUMIN 4.2 GM/DL (3.2-5.2); ALBUMIN/GLOBULIN RATIO 1.17 (1.00-1.93); ALKALINE PHOSPHATASE 79 U/L (45-117); ALT/SGPT 26 U/L (12-78); ANION GAP 7 MEQ/L (8-16); AST/SGOT 14 U/L (15-37); BILIRUBIN,TOTAL 0.3 MG/DL (0.2-1.0); BLOOD UREA NITROGEN 8 MG/DL (7-18); CALCIUM LEVEL 8.9 MG/DL (8.5-10.1); CARBON DIOXIDE LEVEL 26 MEQ/L (21-32); CHLORIDE LEVEL 105 MEQ/L (98-107); CREATININE FOR GFR 0.79 MG/DL (0.55-1.02); FERRITIN 2 NG/ML (8-252); FOLATE 17.6 NG/ML; FREE T4 0.89 NG/DL (0.76-1.46); GLOMERULAR FILTRATION RATE > 60.0 (>60); GLUCOSE, FASTING 85 MG/DL (70-105); PERCENT SATURATION 3.2 % (13.2-37.4); POTASSIUM SERUM 4.5 MEQ/L (3.5-5.1); SODIUM LEVEL 138 MEQ/L (136-145); TOTAL IRON BINDING CAPACITY 527 UG/DL (250-450); TOTAL PROTEIN 7.8 GM/DL (6.4-8.2)
[2016-12-06 19:09] LABS: BASO % 0.5 % (0.0-1.0); EOS # 0.1 K/mm3 (0.0-0.50); LARGE UNSTAINED CELL # 0.1 K/mm3 (0.0-0.4); LARGE UNSTAINED CELL % 1.4 % (0.0-4.0); LYMPH # 2.9 K/mm3 (1.5-6.5); LYMPH % 29.1 % (24.0-44.0); MEAN CORPUSCULAR HEMOGLOBIN 22.8 pg (27.0-33.0); MEAN CORPUSCULAR HGB CONC 30.7 g/dl (32.0-36.5); MEAN CORPUSCULAR VOLUME 74.2 fl (80.0-96.0); MONO # 0.5 K/mm3 (0.0-0.8); MONO % 4.8 % (0.0-5.0); NEUTROPHILS % 63.2 % (36.0-66.0); PLATELET COUNT, AUTOMATED 548 k/mm3 (150-450); RED CELL DISTRIBUTION WIDTH 15.5 % (11.5-14.5); WHITE BLOOD COUNT 9.4 K/mm3 (4.0-10.0)
[2016-12-06 20:39] LABS: ERYTHROCYTE SEDIMENTATION RATE 49 mm/hr (0-20)
== END ==
LOC: M LAB REF 16:47
PROVIDERS: ATTEND Physician Assistant
DX: D50.9 Iron deficiency anemia, unspecified (principal); F33.1 Major depressive disorder, recurrent, moderate; R79.82 Elevated C-reactive protein (CRP)

== ENCOUNTER 2016-12-13 08:52 | Outpatient (CLI) | payer OTHER ==
[~2016-12-13] VITALS: Ht 152.4 cm; Wt 75.8 kg
[2016-12-13] MEDS ORDERED: IRON SUCROSE 25 MG in NS 50 ML IV ONE (09:00)
[2016-12-13] MEDS ORDERED: IRON SUCROSE 175 MG in NS 250 ML IV ONE (10:00)
== END 2016-12-13 14:25 | disposition home or self-care (01) ==
LOC: M INFU 08:52
PROVIDERS: ATTEND Family Medicine
DX: D64.9 Anemia, unspecified (principal); Z79.899 Other long term (current) drug therapy
CPT/HCPCS: 96365; 96366; J1756

== ENCOUNTER → 2016-12-29 | Outpatient (REF) | payer OTHER ==
[~2016-12-29] MED LIST changes: +BENA25TA10 PO; -BENA25TA9 PO; -COLA100C3 PO; +COLA100C5 PO; +FERR1TAB8 PO; -FERR325T PO; +IBUP-1022 PO; -IBUP600T26 PO
[2016-12-29 18:45] LABS: PERCENT SATURATION 11.7 % (13.2-37.4)
[2016-12-29 20:21] LABS: BASO % 0.6 % (0.0-1.0); EOS # 0.1 K/mm3 (0.0-0.50); EOS % 1.4 % (0.0-3.0); LARGE UNSTAINED CELL # 0.1 K/mm3 (0.0-0.4); LARGE UNSTAINED CELL % 1.8 % (0.0-4.0); LYMPH # 2.8 K/mm3 (1.5-6.5); LYMPH % 36.3 % (24.0-44.0); MEAN CORPUSCULAR HEMOGLOBIN 23.1 pg (27.0-33.0); MEAN CORPUSCULAR HGB CONC 30.4 g/dl (32.0-36.5); MEAN CORPUSCULAR VOLUME 75.9 fl (80.0-96.0); MONO # 0.3 K/mm3 (0.0-0.8); PLATELET COUNT, AUTOMATED 462 k/mm3 (150-450); RED CELL DISTRIBUTION WIDTH 18.5 % (11.5-14.5); WHITE BLOOD COUNT 7.2 K/mm3 (4.0-10.0)
[2016-12-29 20:23] LABS: ADD MORPHOLOGY? YES
[2016-12-29 21:22] LABS: ANISOCYTOSIS 2+; HYPOCHROMASIA 2+; MICROCYTOSIS 2+; OVALOCYTES 1+; POIKILOCYTOSIS 1+
[2016-12-29 21:23] LABS: POLYCHROMASIA 1+
== END ==
LOC: M LAB REF 17:31
PROVIDERS: ATTEND Physician Assistant
DX: D50.9 Iron deficiency anemia, unspecified (principal)

== ENCOUNTER → 2017-03-18 | Outpatient (CLI) | payer OTHER ==
--- NOTE | 2017-03-18 09:42 | REP ---
Abdominal right upper quadrant ultrasound: There is no cholelithiasis, gallbladder wall thickening or pericholecystic fluid. There is no intrahepatic or extrahepatic biliary duct dilatation, the common duct measures 5 mm in diameter. 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 The hepatic parenchyma is homogeneous and unremarkable. The visualized portion of the pancreatic head is unremarkable. The body and tail are obscured by bowel. The right kidney is normal size measuring 11.7 cm caudad length. There is no right renal calculus, hydronephrosis, mass or cyst. The proximal abdominal aorta is unremarkable. Impression: Essentially negative abdominal right upper quadrant ultrasound except that the body and tail of the pancreas are obscured by bowel. Signed by Micheal Aviles MD 03/18/2017 08:49 A
== END ==
LOC: M RAD 07:56
PROVIDERS: ATTEND Physician Assistant
DX: R10.11 Right upper quadrant pain (principal)

== ENCOUNTER → 2017-06-03 | Outpatient (CLI) | payer OTHER ==
[2017-06-03 14:12] LABS: BASO % 0.8 % (0.0-1.0); EOS # 0.1 10^3/uL (0.0-0.50); EOS % 1.8 % (0.0-3.0); IMMATURE GRANULOCYTE % 0.2 % (0-0); LYMPH # 1.8 10^3/uL (1.5-6.5); LYMPH % 35.6 % (24.0-44.0); MEAN CORPUSCULAR HGB CONC 29.9 g/dl (32.0-36.5); MONO # 0.3 10^3/uL (0.0-0.8); MONO % 6.3 % (0.0-5.0); NEUTROPHILS # 2.7 10^3/uL (1.8-7.7); NEUTROPHILS % 55.3 % (36.0-66.0); PLATELET COUNT, AUTOMATED 410 10^3/uL (150-450); RED CELL DISTRIBUTION WIDTH 16.5 % (11.5-14.5); WHITE BLOOD COUNT 4.9 10^3/uL (4.0-10.0)
[2017-06-03 14:56] LABS: ALBUMIN 4.1 GM/DL (3.2-5.2); ALBUMIN/GLOBULIN RATIO 1.14 (1.00-1.93); ALKALINE PHOSPHATASE 83 U/L (45-117); ALT/SGPT 18 U/L (12-78); ANION GAP 7 MEQ/L (8-16); AST/SGOT 11 U/L (7-37); BILIRUBIN,TOTAL 0.2 MG/DL (0.2-1.0); BLOOD UREA NITROGEN 8 MG/DL (7-18); CALCIUM LEVEL 8.9 MG/DL (8.5-10.1); CARBON DIOXIDE LEVEL 28 MEQ/L (21-32); CHLORIDE LEVEL 105 MEQ/L (98-107); CREATININE FOR GFR 0.78 MG/DL (0.55-1.02); FERRITIN 2 NG/ML (8-252); FREE T4 0.84 NG/DL (0.76-1.46); GLOMERULAR FILTRATION RATE > 60.0 (>60); GLUCOSE, FASTING 67 MG/DL (70-105); PERCENT SATURATION 3.2 % (13.2-45.0); POTASSIUM SERUM 4.5 MEQ/L (3.5-5.1); SODIUM LEVEL 140 MEQ/L (136-145); TOTAL IRON BINDING CAPACITY 498 UG/DL (250-450); TOTAL PROTEIN 7.7 GM/DL (6.4-8.2)
== END ==
LOC: M SMT 10:13
PROVIDERS: ATTEND Physician Assistant
DX: D50.9 Iron deficiency anemia, unspecified (principal); R53.83 Other fatigue

== ENCOUNTER 2017-06-09 15:08 | Outpatient (CLI) | payer OTHER ==
[~2017-06-09] VITALS: Ht 154.9 cm; Wt 72.7 kg
[2017-06-09 15:30] VITALS: BP 134/83
[2017-06-09] MEDS ORDERED: IRON SUCROSE 200 MG in NS 100 ML IV ONE (15:30)
[2017-06-09 17:35] VITALS: BP 133/70
== END 2017-06-09 17:38 | disposition home or self-care (01) ==
LOC: M OPCLIPED 15:08 → M PED 15:13 → M OPCLIPED 17:38
PROVIDERS: ATTEND Family Medicine
DX: D50.9 Iron deficiency anemia, unspecified (principal); Z79.899 Other long term (current) drug therapy
CPT/HCPCS: 96365; J1756

== ENCOUNTER → 2017-08-17 | Outpatient (REF) | payer OTHER ==
[2017-08-17 18:53] LABS: FERRITIN 3 NG/ML (8-252); IRON (FE) 20 UG/DL (50-170); PERCENT SATURATION 4.5 % (13.2-45.0); TOTAL IRON BINDING CAPACITY 446 UG/DL (250-450)
[2017-08-17 18:55] LABS: BASO % 0.5 % (0.0-1.0); EOS # 0.1 10^3/uL (0.0-0.50); EOS % 1.1 % (0.0-3.0); HEMATOCRIT 36.1 % (36.0-47.0); HEMOGLOBIN 11.5 g/dl (12.0-16.0); IMMATURE GRANULOCYTE % 0.3 % (0-3.0); LYMPH # 2.6 10^3/uL (1.5-6.5); LYMPH % 33.9 % (24.0-44.0); MEAN CORPUSCULAR HEMOGLOBIN 25.7 pg (27.0-33.0); MEAN CORPUSCULAR HGB CONC 31.9 g/dl (32.0-36.5); MEAN CORPUSCULAR VOLUME 80.6 fl (80.0-96.0); MONO # 0.4 10^3/uL (0.0-0.8); MONO % 5.8 % (0.0-5.0); NEUTROPHILS # 4.4 10^3/uL (1.8-7.7); NEUTROPHILS % 58.4 % (36.0-66.0); PLATELET COUNT, AUTOMATED 356 10^3/uL (150-450); RED BLOOD COUNT 4.48 10^6/uL (4.00-5.40); RED CELL DISTRIBUTION WIDTH 17.2 % (11.5-14.5); WHITE BLOOD COUNT 7.6 10^3/uL (4.0-10.0)
== END ==
LOC: M LAB REF 16:59
DX: D50.9 Iron deficiency anemia, unspecified (principal)

== ENCOUNTER 2017-08-31 10:54 | Outpatient (CLI) | payer OTHER ==
[2017-08-31] MEDS: IRON SUCROSE 200 MG in NS 100 ML IV (12:56)
== END 2017-08-31 15:00 | disposition home or self-care (01) ==
LOC: M INFU 10:54
DX: D50.9 Iron deficiency anemia, unspecified (principal); Z79.899 Other long term (current) drug therapy
CPT/HCPCS: J1756

== ENCOUNTER → 2017-09-06 | Outpatient (REF) | payer OTHER ==
[2017-09-06 12:43] LABS: INFLUENZA A AMPLIFICATION NEGATIVE (NEGATIVE); INFLUENZA B AMPLIFICATION NEGATIVE (NEGATIVE)
== END ==
LOC: M LAB REF 11:44
DX: J11.1 Influenza due to unidentified influenza virus with other respiratory manifestations (principal)

== ENCOUNTER → 2017-09-27 | Outpatient (REF) | payer OTHER ==
[2017-09-27 14:14] LABS: FERRITIN 26 NG/ML (8-252); IRON (FE) 21 UG/DL (50-170); PERCENT SATURATION 5.6 % (13.2-45.0); TOTAL IRON BINDING CAPACITY 375 UG/DL (250-450)
[2017-09-27 14:25] LABS: VITAMIN B12 LEVEL 1095 PG/ML (247-911)
[2017-09-29 00:07] LABS: TISSUE TRANSGLUTAMINASE IgA <2 U/mL (0-3)
[2017-09-29 00:07] LABS: ENDOMYSIAL ABY IgA Negative (Negative)
== END ==
LOC: M LAB REF 13:39
DX: D50.9 Iron deficiency anemia, unspecified (principal)

== ENCOUNTER 2017-11-18 09:59 | Day surgery (SDC) | payer OTHER ==
[2017-11-18] MEDS: NS 1,000 ML IV (10:15)
[2017-11-18] MEDS ORDERED: PROPOFOL 200 MG/20 ML VIAL As Ordered ×3 (11:04→12:10)
[2017-11-18] MEDS ORDERED: LIDOCAINE 2% INJ 100 MG/5 ML SDV (FOR ANES.) As Ordered (11:04)
[2017-11-18] MEDS ORDERED: fentaNYL 100 MCG/2 ML INJECTION (J3010) As Ordered (11:56)
== END 2017-11-18 12:52 | disposition home or self-care (01) ==
LOC: M OPP 09:59
DX: D50.9 Iron deficiency anemia, unspecified (principal); D12.5 Benign neoplasm of sigmoid colon; K64.8 Other hemorrhoids; K29.70 Gastritis, unspecified, without bleeding; M79.2 Neuralgia and neuritis, unspecified; R10.9 Unspecified abdominal pain; R19.7 Diarrhea, unspecified; K59.00 Constipation, unspecified; F32.9 Major depressive disorder, single episode, unspecified; Z79.899 Other long term (current) drug therapy; Z80.3 Family history of malignant neoplasm of breast
CPT/HCPCS: 45380

== ENCOUNTER → 2017-11-30 | Outpatient (REF) | payer OTHER ==
[2017-12-01 10:43] LABS: CREATININE FOR GFR 0.74 MG/DL (0.55-1.30); FERRITIN 3 NG/ML (8-252); GLOMERULAR FILTRATION RATE > 60.0 (>60); IRON (FE) 31 UG/DL (50-170); PERCENT SATURATION 6.5 % (13.2-45.0); TOTAL IRON BINDING CAPACITY 476 UG/DL (250-450)
[2017-12-01 10:43] LABS: BLOOD UREA NITROGEN 10 MG/DL (7-18)
[2017-12-01 12:57] LABS: HEMATOCRIT 37.6 % (36.0-47.0); HEMOGLOBIN 11.7 g/dl (12.0-15.5); MEAN CORPUSCULAR HEMOGLOBIN 26.9 pg (27.0-33.0); MEAN CORPUSCULAR HGB CONC 31.1 g/dl (32.0-36.5); MEAN CORPUSCULAR VOLUME 86.4 fl (80.0-96.0); PLATELET COUNT, AUTOMATED 358 10^3/uL (150-450); RED BLOOD COUNT 4.35 10^6/uL (4.00-5.40); RED CELL DISTRIBUTION WIDTH 14.2 % (11.5-14.5)
[2017-12-01 13:45] LABS: ADD MANUAL DIFFER YES; DIFF SLIDE NUMBER 305
[2017-12-01 14:00] LABS: ATYPICAL LYMPH 1 % (0-5); BANDS 1 % (< 11); EOSINOPHILS 2 % (0-5); LYMPHOCYTES 38 % (16-52); MONOCYTES 2 % (0-8); NEUTROPHILS 56 % (35-75); PLATELET ESTIMATE NORMAL (NORMAL)
[2017-12-01 14:01] LABS: ANISOCYTOSIS 1+
[2017-12-01 14:55] LABS: FOLATE > 24.0 NG/ML; VITAMIN B12 LEVEL 865 PG/ML
[2017-12-03 00:07] LABS: INTRINSIC FACTOR ANTIBODY 0.9 AU/mL (0.0-1.1)
[2017-12-03 00:07] LABS: ANTI-PARIETAL CELL ANTIBODY 0.8 Units (0.0-20.0)
== END ==
LOC: M LAB REF 10:00
DX: D50.9 Iron deficiency anemia, unspecified (principal)

== ENCOUNTER → 2018-02-06 | Outpatient (REF) | payer OTHER ==
[2018-02-06 18:36] LABS: ESTIMATED AVERAGE GLUCOSE 97 MG/DL (60-110)
== END ==
LOC: M LAB REF 16:51
DX: R73.9 Hyperglycemia, unspecified (principal)
CPT/HCPCS: 83036

== ENCOUNTER → 2018-02-24 | Outpatient (REF) | payer OTHER ==
[2018-02-24 11:49] LABS: BASO # 0.1 10^3/uL (0.0-0.2); BASO % 0.9 % (0.0-1.0); EOS # 0.1 10^3/uL (0.0-0.50); EOS % 1.2 % (0.0-3.0); HEMATOCRIT 37.3 % (36.0-47.0); HEMOGLOBIN 11.6 g/dl (12.0-15.5); IMMATURE GRANULOCYTE % 0.2 % (0-3.0); LYMPH % 29.9 % (24.0-44.0); MEAN CORPUSCULAR HEMOGLOBIN 25.8 pg (27.0-33.0); MEAN CORPUSCULAR HGB CONC 31.1 g/dl (32.0-36.5); MEAN CORPUSCULAR VOLUME 82.9 fl (80.0-96.0); MONO # 0.4 10^3/uL (0.0-0.8); MONO % 5.3 % (0.0-5.0); NEUTROPHILS # 4.1 10^3/uL (1.8-7.7); NEUTROPHILS % 62.5 % (36.0-66.0); PLATELET COUNT, AUTOMATED 404 10^3/uL (150-450); RED CELL DISTRIBUTION WIDTH 14.7 % (11.5-14.5); WHITE BLOOD COUNT 6.6 10^3/uL (4.0-10.0)
[2018-02-24 12:42] LABS: FERRITIN 3 NG/ML (8-252); IRON (FE) 29 UG/DL (50-170); TOTAL IRON BINDING CAPACITY 487 UG/DL (250-450)
== END ==
LOC: M LAB REF 11:07
DX: E61.1 Iron deficiency (principal); R00.0 Tachycardia, unspecified

== ENCOUNTER → 2018-03-17 | Outpatient (CLI) | payer OTHER | LOC: M CARPUL 10:26 | DX: R00.0 Tachycardia, unspecified (principal); I10 Essential (primary) hypertension | CPT/HCPCS: 93306 ==

== ENCOUNTER → 2018-04-05 | Outpatient (REF) | payer OTHER ==
[2018-04-05 14:20] LABS: ERYTHROCYTE SEDIMENTATION RATE 18 mm/hr (0-20)
[2018-04-05 14:37] LABS: ALBUMIN 4.1 GM/DL (3.2-5.2); ALBUMIN/GLOBULIN RATIO 1.14 (1.00-1.93); ALKALINE PHOSPHATASE 78 U/L (45-117); ALT/SGPT 23 U/L (12-78); AMYLASE 69 U/L (25-115); AST/SGOT 14 U/L (7-37); BILIRUBIN,DIRECT < 0.1 MG/DL (0.0-0.2); BILIRUBIN,TOTAL 0.3 MG/DL (0.2-1.0); C REACTIVE PROTEIN QUANTITATIV 0.64 MG/DL (0.00-0.30); GAMMA GLUTAMYLTRANSPEPTIDASE 26 U/L (5-55); LIPASE 252 U/L (73-393); TOTAL PROTEIN 7.7 GM/DL (6.4-8.2)
== END ==
LOC: M LAB REF 13:40
DX: R19.7 Diarrhea, unspecified (principal)

== ENCOUNTER → 2018-04-10 | Outpatient (CLI) | payer OTHER | LOC: M RAD 06:15 | DX: R19.7 Diarrhea, unspecified (principal) | CPT/HCPCS: 76705 ==

== ENCOUNTER → 2018-05-02 | Outpatient (CLI) | payer OTHER | LOC: M RAD 08:19 | DX: R10.13 Epigastric pain (principal) | CPT/HCPCS: J2805 ==

== ENCOUNTER 2018-05-05 11:27 | Day surgery (SDC) | payer OTHER ==
[2018-05-05] MEDS: NS 1,000 ML IV (12:05)
[2018-05-05] MEDS ORDERED: PROPOFOL 200 MG/20 ML VIAL As Ordered ×6 (12:37→13:46)
[2018-05-05] MEDS ORDERED: LIDOCAINE 2% INJ 100 MG/5 ML SDV (FOR ANES.) As Ordered (12:38)
[2018-05-05] MEDS ORDERED: fentaNYL 100 MCG/2 ML INJECTION (J3010) As Ordered (12:59)
[2018-05-05] MEDS ORDERED: ONDANSETRON 4MG/2ML VIAL (J2405) As Ordered (14:44)
[2018-05-05] MEDS ORDERED: ONDANSETRON 4MG/2ML VIAL (J2405) IV (15:00)
[2018-05-05] MEDS ORDERED: PERCOCET 5MG/325MG TAB PO (15:00)
== END 2018-05-05 15:50 | disposition home or self-care (01) ==
LOC: M OPP 11:27
DX: K55.20 Angiodysplasia of colon without hemorrhage (principal); D50.9 Iron deficiency anemia, unspecified; F41.9 Anxiety disorder, unspecified; G43.909 Migraine, unspecified, not intractable, without status migrainosus; M79.2 Neuralgia and neuritis, unspecified; Z79.899 Other long term (current) drug therapy; Z82.49 Family history of ischemic heart disease and other diseases of the circulatory system; Z80.6 Family history of leukemia; Z82.61 Family history of arthritis
CPT/HCPCS: 44361

== ENCOUNTER → 2018-06-02 | Outpatient (REF) | payer OTHER ==
[2018-06-02 14:04] LABS: TOTAL 25(OH) VITAMIN D 34.9 NG/ML (30.0-100.0)
== END ==
LOC: M LAB REF 12:58
DX: E55.9 Vitamin D deficiency, unspecified (principal)
CPT/HCPCS: 82306

== ENCOUNTER → 2018-07-20 | Outpatient (REF) | payer OTHER ==
[~2018-07-20] MED LIST changes: -ACET50TA PO; +ALPR0.5T3 PO; +FERR325T3 PO; +FIOR1CAP PO; +LAMO25TA4 PO; +MAPA500T2 PO; +OMEP20CA3 PO; +OMEP40CA2 PO; +PANT40TA3 PO; +VITA100067 PO; +ZOFR4SOL PO; +ZOLO100T PO; +bentyl PO
[2018-07-20 14:02] LABS: BASO # 0.1 10^3/uL (0.0-0.2); BASO % 0.9 % (0.0-1.0); EOS # 0.2 10^3/uL (0.0-0.50); EOS % 2.5 % (0.0-3.0); HEMATOCRIT 37.9 % (36.0-47.0); HEMOGLOBIN 12.2 g/dl (12.0-15.5); LYMPH # 1.5 10^3/uL (1.5-6.5); LYMPH % 22.8 % (24.0-44.0); MEAN CORPUSCULAR HEMOGLOBIN 27.2 pg (27.0-33.0); MEAN CORPUSCULAR HGB CONC 32.2 g/dl (32.0-36.5); MEAN CORPUSCULAR VOLUME 84.4 fl (80.0-96.0); MONO # 0.4 10^3/uL (0.0-0.8); MONO % 5.7 % (0.0-5.0); NEUTROPHILS # 4.4 10^3/uL (1.8-7.7); NEUTROPHILS % 67.9 % (36.0-66.0); PLATELET COUNT, AUTOMATED 378 10^3/uL (150-450); RED BLOOD COUNT 4.49 10^6/uL (4.00-5.40); WHITE BLOOD COUNT 6.4 10^3/uL (4.0-10.0)
[2018-07-20 14:32] LABS: FREE T4 0.94 NG/DL (0.76-1.46); THYROID STIMULATING HORMONE 0.596 uIU/ML (0.358-3.740)
[2018-07-20 15:10] LABS: ERYTHROCYTE SEDIMENTATION RATE 25 mm/hr (0-20)
[2018-07-22 00:06] LABS: ANA (HEP2) Negative (.); CYCLIC CITRULLINATED PEPTIDE 2 units (0-19); Lyme Disease IgG/IgM Antibodie <0.91 ISR (0.00-0.90); Lyme Disease IgM Ab Quantitati <0.80 index (0.00-0.79); TISSUE TRANSGLUTAMINASE IgA <2 U/mL (0-3); TISSUE TRANSGLUTAMINASE IgG <2 U/mL (0-5)
== END ==
LOC: M LABSMT 13:42
PROVIDERS: ATTEND Family Medicine
DX: R21 Rash and other nonspecific skin eruption (principal); E66.09 Other obesity due to excess calories; E55.9 Vitamin D deficiency, unspecified; F31.89 Other bipolar disorder

== ENCOUNTER → 2018-07-20 | Outpatient (REF) | payer OTHER | LOC: M LAB REF 17:05 | PROVIDERS: ATTEND Family Medicine | DX: R21 Rash and other nonspecific skin eruption (principal) ==

== ENCOUNTER 2018-09-09 22:29 | Emergency (ER) | payer OTHER ==
[2018-09-09 22:38] VITALS: BP 110/81
[2018-09-09] MEDS ORDERED: ONDANSETRON 4MG/2ML VIAL (J2405) IV ONE (22:45)
[2018-09-09] MEDS: MORPHINE 2 MG/ML 1ML SYRINGE (J2270) IV PRN ×2 (23:01→23:34)
[2018-09-09 23:02] LABS: BASO # 0.1 10^3/uL (0.0-0.2); BASO % 0.7 % (0.0-1.0); EOS # 0.2 10^3/uL (0.0-0.50); EOS % 2.2 % (0.0-3.0); HEMATOCRIT 37.1 % (36.0-47.0); HEMOGLOBIN 11.9 g/dl (12.0-15.5); LYMPH # 2.6 10^3/uL (1.5-6.5); LYMPH % 34.4 % (24.0-44.0); MEAN CORPUSCULAR HEMOGLOBIN 26.2 pg (27.0-33.0); MEAN CORPUSCULAR HGB CONC 32.1 g/dl (32.0-36.5); MEAN CORPUSCULAR VOLUME 81.7 fl (80.0-96.0); MONO # 0.5 10^3/uL (0.0-0.8); MONO % 5.9 % (0.0-5.0); NEUTROPHILS # 4.3 10^3/uL (1.8-7.7); NEUTROPHILS % 56.5 % (36.0-66.0); PLATELET COUNT, AUTOMATED 477 10^3/uL (150-450); RED BLOOD COUNT 4.54 10^6/uL (4.00-5.40); WHITE BLOOD COUNT 7.6 10^3/uL (4.0-10.0)
[2018-09-09 23:22] LABS: ALBUMIN 4.1 GM/DL (3.2-5.2); ALT/SGPT 22 U/L (12-78); BILIRUBIN,DIRECT < 0.1 MG/DL (0.0-0.2); BILIRUBIN,TOTAL 0.3 MG/DL (0.2-1.0); BLOOD UREA NITROGEN 14 MG/DL (7-18); CALCIUM LEVEL 8.6 MG/DL (8.5-10.1); CARBON DIOXIDE LEVEL 23 MEQ/L (21-32); CHLORIDE LEVEL 107 MEQ/L (98-107); CREATININE FOR GFR 0.89 MG/DL (0.55-1.30); GLOMERULAR FILTRATION RATE > 60.0 (>60); GLUCOSE, FASTING 99 MG/DL (70-100); LIPASE 247 U/L (73-393); POTASSIUM SERUM 4.1 MEQ/L (3.5-5.1); SODIUM LEVEL 139 MEQ/L (136-145); TOTAL PROTEIN 7.7 GM/DL (6.4-8.2)
[2018-09-09 23:23] LABS: HCG, SERUM QUALITATIVE NEGATIVE (NEGATIVE)
[2018-09-09] MEDS ORDERED: NS 1,000 ML IV ONE (23:30)
[2018-09-09 23:42] LABS: BILIRUBIN, URINE MANUAL OBSCURED (NEGATIVE); GLUCOSE, URINE (UA) MANUAL OBSCURED mg/dL (NEGATIVE); KETONE, URINE MANUAL OBSCURED mg/dL (NEGATIVE); UROBILINOGEN, URINE MANUAL OBSCURED mg/dl (NORMAL)
[2018-09-09 23:48] LABS: SQUAMOUS EPITHELIAL CELL URINE SMALL AMOUNT /hpf (SMALL AMT)
[2018-09-09 23:50] LABS: BACTERIA, URINE SMALL AMOUNT
[2018-09-09 23:51] LABS: HYALINE CAST, URINE NONE SEEN /lpf (0-1); TRANSITIONAL EPI CELLS, URINE MOD AMOUNT /hpf
[2018-09-09 23:53] LABS: AMORPHOUS SEDIMENT, URINE SMALL AMOUNT (NEGATIVE); MUCUS, URINE SMALL AMOUNT (NEGATIVE)
[2018-09-10] MEDS ORDERED: PERCOCET 5MG/325MG TAB PO ONE (01:00)
--- NOTE | 2018-09-10 03:04 | REPVR ---
EXAM: US Pelvis Complete, Transabdominal and US Pelvis, Transvaginal EXAM DATE/TIME: 09/10/2018 12:52 AM CLINICAL HISTORY: 27 years old, female; Pain; Pelvic pain; Additional info: Right adnexal pain TECHNIQUE: Real-time transabdominal and transvaginal pelvic ultrasound (complete) with image documentation. Transvaginal imaging was used for better evaluation of the endometrium and adnexa. COMPARISON: US PELVIC NON-OB COMPLETE 08/09/2016 12:28 PM FINDINGS: Uterus/cervix: Uterus measures 9 x 4 x 4.5 cm. Endometrial stripe is approximately 8 mm. Right adnexa: Obscured by bowel gas. Left adnexa: Obscured by bowel gas. Free fluid: None. Bladder: Normal. IMPRESSION: Bilateral adnexal regions are obscured by bowel gas. No free fluid. Electronically signed by: Louis Castaneda On 09/10/2018 03:04:00 AM
[2018-09-10] MEDS ORDERED: CIPROFLOXACIN 500 MG TAB PO ONE (03:15)
[2018-09-10] MEDS ORDERED: OXYCODONE/APAP 5MG/325MG(BULK FOR ED) 1 TABLET PO ONE (03:15)
[2018-09-10] MEDS ORDERED: PERC5TAB12 PO (03:18)
[2018-09-10] MEDS ORDERED: METR1GEL7 PV (03:18)
[2018-09-10] MEDS ORDERED: CIPR-249 PO (03:18)
[2018-09-10 03:40] LABS: CHLAMYDIA DNA AMPLIFICATION NEGATIVE (NEGATIVE); GC DNA AMPLIFICATION NEGATIVE (NEGATIVE)
--- NOTE | 2018-09-10 11:33 | ED PDOC ---
Post-Departure Follow-Up dr lupis flannery faxed formal report of pelvic us for fu Dejan Hall MD Sep 10, 2018 11:33
== END 2018-09-10 03:44 | disposition home or self-care (01) ==
LOC: M ED 22:29
DX: N76.0 Acute vaginitis (principal); N39.0 Urinary tract infection, site not specified; Z87.440 Personal history of urinary (tract) infections; Z79.899 Other long term (current) drug therapy; Z79.2 Long term (current) use of antibiotics
CPT/HCPCS: 76830; 76856; 80048; 80076; 81000; 83690; 84703; 85025; 87040; 87088; 87186; 87210; 87491; 87591; 96374; 96375; 96376; 99284; J2270; J2405

== ENCOUNTER → 2018-10-04 | Outpatient (REF) | payer OTHER ==
[~2018-10-04] MED LIST changes: +CIPR-249 PO; +METR1GEL7 PV; +PERC5TAB12 PO
== END ==
LOC: M LAB REF 17:22
PROVIDERS: ATTEND Physician Assistant
DX: N39.0 Urinary tract infection, site not specified (principal)

== ENCOUNTER → 2018-10-04 | Outpatient (CLI) | payer OTHER ==
[2018-10-04 18:03] LABS: BLOOD UREA NITROGEN 8 MG/DL (7-18); CALCIUM LEVEL 8.9 MG/DL (8.5-10.1); CARBON DIOXIDE LEVEL 30 MEQ/L (21-32); CHLORIDE LEVEL 106 MEQ/L (98-107); CREATININE FOR GFR 0.72 MG/DL (0.55-1.30); FERRITIN 4 NG/ML (8-252); GLOMERULAR FILTRATION RATE > 60.0 (>60); GLUCOSE, FASTING 90 MG/DL (70-100); IRON (FE) 44 UG/DL (50-170); PERCENT SATURATION 9.6 % (13.2-45.0); POTASSIUM SERUM 4.4 MEQ/L (3.5-5.1); SODIUM LEVEL 139 MEQ/L (136-145); TOTAL IRON BINDING CAPACITY 457 UG/DL (250-450)
[2018-10-04 18:05] LABS: BASO # 0.1 10^3/uL (0.0-0.2); BASO % 0.7 % (0.0-1.0); EOS # 0.1 10^3/uL (0.0-0.50); EOS % 1.4 % (0.0-3.0); HEMATOCRIT 36.4 % (36.0-47.0); HEMOGLOBIN 11.2 g/dl (12.0-15.5); LYMPH # 2.6 10^3/uL (1.5-6.5); LYMPH % 28.7 % (24.0-44.0); MEAN CORPUSCULAR HEMOGLOBIN 25.9 pg (27.0-33.0); MEAN CORPUSCULAR HGB CONC 30.8 g/dl (32.0-36.5); MEAN CORPUSCULAR VOLUME 84.3 fl (80.0-96.0); MONO # 0.6 10^3/uL (0.0-0.8); MONO % 6.3 % (0.0-5.0); NEUTROPHILS # 5.6 10^3/uL (1.8-7.7); NEUTROPHILS % 62.7 % (36.0-66.0); PLATELET COUNT, AUTOMATED 376 10^3/uL (150-450); RED BLOOD COUNT 4.32 10^6/uL (4.00-5.40)
== END ==
LOC: M SMT 14:48
PROVIDERS: ATTEND Physician Assistant
DX: D50.9 Iron deficiency anemia, unspecified (principal)

== ENCOUNTER → 2019-07-06 | Outpatient (REF) | payer OTHER ==
[~2019-07-06] MED LIST changes: +OMEP-172 PO; -OMEP20CA3 PO; -OMEP40CA2 PO; +OMEP40CA97 PO
[2019-07-06 18:44] LABS: BASO # 0.1 10^3/uL (0.0-0.2); BASO % 0.8 % (0.0-1.0); EOS # 0.1 10^3/uL (0.0-0.5); EOS % 0.8 % (0.0-3.0); HEMATOCRIT 38.9 % (36.0-47.0); HEMOGLOBIN 12.7 g/dl (12.0-15.5); LYMPH # 2.6 10^3/uL (1.5-5.0); LYMPH % 43.1 % (24.0-44.0); MEAN CORPUSCULAR HGB CONC 32.6 g/dl (32.0-36.5); MEAN CORPUSCULAR VOLUME 88.8 fl (80.0-96.0); MONO # 0.3 10^3/uL (0.0-0.8); MONO % 4.7 % (0.0-5.0); NEUTROPHILS % 50.4 % (36.0-66.0); PLATELET COUNT, AUTOMATED 349 10^3/uL (150-450); RED BLOOD COUNT 4.38 10^6/uL (4.00-5.40); WHITE BLOOD COUNT 5.9 10^3/uL (4.0-10.0)
== END ==
LOC: M LAB REF 16:37
PROVIDERS: ATTEND Family Medicine
DX: D50.9 Iron deficiency anemia, unspecified (principal)

== ENCOUNTER → 2020-05-05 | Outpatient (REF) | payer OTHER ==
[~2020-05-05] MED LIST changes: -OMEP-172 PO; +OMEP1CAP73 PO; +PANT40TA29 PO; -PANT40TA3 PO
[2020-05-05 18:03] LABS: BASO # 0.1 10^3/uL (0.0-0.2); BASO % 0.9 % (0.0-1.0); EOS # 0.1 10^3/uL (0.0-0.5); EOS % 1.8 % (0.0-3.0); HEMATOCRIT 41.7 % (36.0-47.0); HEMOGLOBIN 13.9 g/dl (12.0-15.5); LYMPH # 1.7 10^3/uL (1.5-5.0); LYMPH % 31.2 % (24.0-44.0); MEAN CORPUSCULAR HGB CONC 33.3 g/dl (32.0-36.5); MEAN CORPUSCULAR VOLUME 89.9 fl (80.0-96.0); MONO # 0.5 10^3/uL (0.0-0.8); MONO % 8.3 % (0.0-5.0); NEUTROPHILS # 3.2 10^3/uL (1.5-8.5); NEUTROPHILS % 57.6 % (36.0-66.0); RED BLOOD COUNT 4.64 10^6/uL (4.00-5.40); WHITE BLOOD COUNT 5.5 10^3/uL (4.0-10.0)
[2020-05-05 19:39] LABS: ALBUMIN 4.4 GM/DL (3.2-5.2); ALT/SGPT 21 U/L (12-78); BILIRUBIN,TOTAL 0.6 MG/DL (0.2-1.0); BLOOD UREA NITROGEN 8 MG/DL (7-18); CALCIUM LEVEL 9.1 MG/DL (8.5-10.1); CARBON DIOXIDE LEVEL 24 MEQ/L (21-32); CHLORIDE LEVEL 103 MEQ/L (98-107); CREATININE FOR GFR 0.86 MG/DL (0.55-1.30); FERRITIN 43 NG/ML (8-252); FOLATE 19.2 NG/ML; GLOMERULAR FILTRATION RATE > 60.0 (>60); GLUCOSE, FASTING 103 MG/DL (70-100); IRON (FE) 71 UG/DL (50-170); PERCENT SATURATION 17.2 % (13.2-45.0); POTASSIUM SERUM 5.4 MEQ/L (3.5-5.1); SODIUM LEVEL 134 MEQ/L (136-145); TOTAL IRON BINDING CAPACITY 412 UG/DL (250-450); TOTAL PROTEIN 8.1 GM/DL (6.4-8.2); VITAMIN B12 LEVEL > 2000 PG/ML
== END ==
LOC: M LAB REF 16:46
PROVIDERS: ATTEND Pediatrics
DX: D50.9 Iron deficiency anemia, unspecified (principal); F41.1 Generalized anxiety disorder

== ENCOUNTER → 2020-05-09 | Outpatient (CLI) | payer SELFPAY | LOC: M LABSMTC 11:08 | PROVIDERS: ATTEND Pediatrics | DX: Z20.828 Contact with and (suspected) exposure to other viral communicable diseases (principal) ==

== ENCOUNTER 2020-12-27 15:07 | Emergency (ER) | payer BC, OTHER ==
[~2020-12-27] VITALS: Ht 152.4 cm; Wt 71.1 kg
[~2020-12-27 15:07] MED LIST changes: +OMEP40CA4 PO; -OMEP40CA97 PO
[2020-12-27] MEDS ORDERED: BUSP5TA PO (15:16)
[2020-12-27] MEDS ORDERED: VYVA60CA PO (15:16)
[2020-12-27] MEDS ORDERED: SERT25TA85 PO (15:16)
[2020-12-27] MEDS ORDERED: IRON65TA2 PO (15:16)
[2020-12-27 16:05] LABS: BASO % 0.3 % (0.0-1.0); EOS % 0.1 % (0.0-3.0); HEMATOCRIT 39.8 % (36.0-47.0); HEMOGLOBIN 12.6 g/dl (12.0-15.5); LYMPH # 1.5 10^3/uL (1.5-5.0); LYMPH % 19.3 % (24.0-44.0); MEAN CORPUSCULAR HEMOGLOBIN 27.8 pg (27.0-33.0); MEAN CORPUSCULAR HGB CONC 31.7 g/dl (32.0-36.5); MEAN CORPUSCULAR VOLUME 87.7 fl (80.0-96.0); MONO # 0.5 10^3/uL (0.0-0.8); MONO % 6.4 % (2.0-8.0); NEUTROPHILS # 5.8 10^3/uL (1.5-8.5); NEUTROPHILS % 73.5 % (36.0-66.0); PLATELET COUNT, AUTOMATED 309 10^3/uL (150-450); RED BLOOD COUNT 4.54 10^6/uL (4.00-5.40); WHITE BLOOD COUNT 7.8 10^3/uL (4.0-10.0)
[2020-12-27 16:29] LABS: ALBUMIN 3.6 GM/DL (3.2-5.2); ALT/SGPT 23 U/L (12-78); BILIRUBIN,DIRECT < 0.1 MG/DL (0.0-0.2); BILIRUBIN,TOTAL 0.3 MG/DL (0.2-1.0); LIPASE 85 U/L (73-393); TOTAL PROTEIN 7.1 GM/DL (6.4-8.2)
[2020-12-27] MEDS ORDERED: ONDANSETRON 4MG/2ML VIAL IV ONE (18:00)
[2020-12-27] MEDS ORDERED: NS 1,000 ML IV ONE (18:00)
[2020-12-27] MEDS ORDERED: MORPHINE 4 MG/ML 1ML VIAL/SYRINGE (J2270) IV ONE (18:00)
[2020-12-27] MEDS ORDERED: ISOVUE-370 76% 100ML VIAL As Ordered ONE (18:11)
[2020-12-27] MEDS ORDERED: KETOROLAC 30 MG/ML 1ML VIAL IV ONE (18:20)
--- NOTE | 2020-12-27 18:58 | REP ---
INDICATION: acute RUQ pain COMPARISON: 04/10/2018 TECHNIQUE: Real time stephenson scale ultrasound examination using curved array transducer. FINDINGS: Liver is normal in contour, size, and echogenicity without focal hepatic lesions identified. Pancreas is incompletely evaluated due to interposed bowel gas. The gallbladder is normal and without gallstones, wall thickening, or pericholecystic fluid. No biliary ductal dilatation is appreciated and the common bile duct measures 4.9 mm diameter. Right kidney is normal in reniform shape without hydronephrosis and measures 11.2 x 5.4 x 3.8 cm. No ascites in the visualized right upper quadrant. IMPRESSION: Normal limited right upper quadrant ultrasound <Electronically signed by Dwayne Staples > 12/27/20 [id number]
[2020-12-27] MEDS ORDERED: MORPHINE 2 MG/ML 1ML VIAL (J2270) IV ONE (19:25)
--- NOTE | 2020-12-27 19:53 | REPVR ---
PROCEDURE INFORMATION: Exam: CT Abdomen And Pelvis With Contrast Exam date and time: 12/27/2020 6:44 PM Age: 30 years old Clinical indication: Abdominal pain; Prior surgery TECHNIQUE: Imaging protocol: Computed tomography of the abdomen and pelvis with contrast. Radiation optimization: All CT scans at this facility use at least one of these dose optimization techniques: automated exposure control; mA and/or kV adjustment per patient size (includes targeted exams where dose is matched to clinical indication); or iterative reconstruction. Contrast material: ISOVUE 370; Contrast volume: 100 ml; Contrast route: INTRAVENOUS (IV); COMPARISON: US PELVIC NON-OB COMPLETE 09/10/2018 12:42 AM FINDINGS: Liver: Normal. No mass. Gallbladder and bile ducts: Normal. No calcified stones. No ductal dilation. Pancreas: Normal. No ductal dilation. Spleen: Normal. No splenomegaly. Adrenal glands: Normal. No mass. Kidneys and ureters: Normal. No hydronephrosis. Stomach and bowel: Mild wall thickening of the ascending colon and hepatic flexure and slight wall thickening of the distal ileum. There is fluid throughout the remaining colon to the rectum consistent with diarrhea with upper normal size of the distal colon. There is nondilated small bowel in the right abdomen. Appendix: A normal appendix is seen. Intraperitoneal space: Trace free fluid in the right pericolic gutter and in the pelvis. Vasculature: Unremarkable. No abdominal aortic aneurysm. Lymph nodes: Borderline right lower quadrant mesenteric nodes for age which may be reactive. Urinary bladder: Unremarkable as visualized. Reproductive: Unremarkable as visualized. Bones/joints: Unremarkable. No acute fracture. Soft tissues: Unremarkable. IMPRESSION: 1. Mild segmental colitis of the ascending colon and hepatic flexure and question of minimal distal ileitis. 2. Fluid throughout the colon which is of upper normal size consistent with diarrhea. 3. Trace free fluid in the right pericolic gutter and pelvis which is likely reactive. 4. Borderline right lower quadrant mesenteric nodes for age which may be reactive. Electronically signed by: Tej Gallegos On 12/27/2020 19:52:54 PM
[2020-12-27] MEDS ORDERED: PERCOCET 5MG/325MG TAB PO ONE (20:15)
[2020-12-27] MEDS ORDERED: CIPR-249 PO ×2 (20:23→20:26)
[2020-12-27] MEDS ORDERED: FLAG500T PO (20:25)
[2020-12-27] MEDS ORDERED: ZOFR4TAB16 PO (20:26)
[2020-12-27] MEDS ORDERED: PERC5TAB12 PO ×2 (20:27→20:31)
[2020-12-27] MEDS ORDERED: OXYCODONE/APAP 5MG/325MG(BULK FOR ED) 1 TABLET PO ONE (20:35)
[2020-12-27 20:38] VITALS: BP 100/64
--- NOTE | 2020-12-30 10:23 | ED PDOC ---
Post-Departure Follow-Up radiology report faxed to Madeline Browning MD Dec 30, 2020 10:23
== END 2020-12-27 20:50 | disposition home or self-care (01) ==
LOC: M ED 15:07
DX: K52.9 Noninfective gastroenteritis and colitis, unspecified (principal); J45.909 Unspecified asthma, uncomplicated; G50.0 Trigeminal neuralgia; G43.909 Migraine, unspecified, not intractable, without status migrainosus; Z79.899 Other long term (current) drug therapy
CPT/HCPCS: 74177; 76705; 80047; 80076; 83605; 83690; 84702; 85025; 96361; 96374; 96375; 96376; 99284; J1885; J2270; J2405; Q9967

== ENCOUNTER 2021-09-04 14:31 | Emergency (ER) | payer BC ==
[~2021-09-04 14:31] MED LIST changes: +BUSP5TA PO; +FLAG500T PO; +IRON65TA2 PO; +SERT25TA85 PO; +VYVA60CA PO; +ZOFR4TAB16 PO
[2021-09-04] MEDS ORDERED: NS 1,000 ML IV ONE (15:10)
[2021-09-04 15:56] LABS: BASO % 0.6 % (0.0-1.0); EOS % 0.5 % (0.0-3.0); HEMATOCRIT 33.8 % (36.0-47.0); HEMOGLOBIN 10.3 g/dl (12.0-15.5); LYMPH % 16.7 % (24.0-44.0); MEAN CORPUSCULAR HGB CONC 30.5 g/dl (32.0-36.5); MEAN CORPUSCULAR VOLUME 78.8 fl (80.0-96.0); MONO # 0.4 10^3/uL (0.0-0.8); MONO % 5.8 % (2.0-8.0); NEUTROPHILS # 4.7 10^3/uL (1.5-8.5); NEUTROPHILS % 76.2 % (36.0-66.0); PLATELET COUNT, AUTOMATED 365 10^3/uL (150-450); RED BLOOD COUNT 4.29 10^6/uL (4.00-5.40); WHITE BLOOD COUNT 6.2 10^3/uL (4.0-10.0)
[2021-09-04 16:22] LABS: ALBUMIN 3.7 GM/DL (3.2-5.2); ALT/SGPT 21 U/L (12-78); BILIRUBIN,DIRECT 0.1 MG/DL (0.0-0.2); BILIRUBIN,TOTAL 0.3 MG/DL (0.2-1.0); BLOOD UREA NITROGEN 5 MG/DL (7-18); CALCIUM LEVEL 8.5 MG/DL (8.5-10.1); CARBON DIOXIDE LEVEL 30 MEQ/L (21-32); CHLORIDE LEVEL 107 MEQ/L (98-107); CREATININE FOR GFR 0.83 MG/DL (0.55-1.30); GLOMERULAR FILTRATION RATE > 60.0 (>60); GLUCOSE, FASTING 86 MG/DL (70-100); MAGNESIUM LEVEL 2.2 MG/DL (1.8-2.4); PHOSPHORUS LEVEL 1.8 MG/DL (2.5-4.9); POTASSIUM SERUM 3.9 MEQ/L (3.5-5.1); SODIUM LEVEL 140 MEQ/L (136-145)
[2021-09-04 16:23] LABS: HCG, SERUM QUALITATIVE NEGATIVE (NEGATIVE)
[2021-09-04 16:27] LABS: AMPHETAMINES LEVEL URINE NEGATIVE (NEGATIVE); BARBITURATES URINE NEGATIVE (NEGATIVE); BENZODIAZEPINES URINE NEGATIVE (NEGATIVE); CANNABINOIDS URINE NEGATIVE (NEGATIVE); COCAINE METABOLITE URINE NEGATIVE (NEGATIVE); METHADONE URINE NEGATIVE (NEGATIVE); OPIATES URINE NEGATIVE (NEGATIVE); PHENCYCLIDINE URINE NEGATIVE (NEGATIVE)
[2021-09-04 18:29] VITALS: BP 115/77
== END 2021-09-04 18:37 | disposition home or self-care (01) ==
LOC: M ED 14:31 → EDBD 14:31 → M ED 18:37
DX: G40.909 Epilepsy, unspecified, not intractable, without status epilepticus (principal); F33.9 Major depressive disorder, recurrent, unspecified; F41.9 Anxiety disorder, unspecified; Z86.69 Personal history of other diseases of the nervous system and sense organs; Z79.899 Other long term (current) drug therapy

== ENCOUNTER → 2021-09-08 | Outpatient (CLI) | payer BC ==
[2021-09-08 17:35] LABS: BASO # 0.1 10^3/uL (0.0-0.2); BASO % 0.8 % (0.0-1.0); EOS # 0.1 10^3/uL (0.0-0.5); EOS % 1.3 % (0.0-3.0); HEMATOCRIT 35.5 % (36.0-47.0); LYMPH # 2.2 10^3/uL (1.5-5.0); MEAN CORPUSCULAR HEMOGLOBIN 24.5 pg (27.0-33.0); MEAN CORPUSCULAR VOLUME 79.1 fl (80.0-96.0); MONO # 0.4 10^3/uL (0.0-0.8); MONO % 6.4 % (2.0-8.0); NEUTROPHILS # 3.3 10^3/uL (1.5-8.5); NEUTROPHILS % 55.2 % (36.0-66.0); PLATELET COUNT, AUTOMATED 382 10^3/uL (150-450); RED BLOOD COUNT 4.49 10^6/uL (4.00-5.40); WHITE BLOOD COUNT 6.1 10^3/uL (4.0-10.0)
[2021-09-08 17:57] LABS: ALBUMIN 4.2 GM/DL (3.2-5.2); ALT/SGPT 26 U/L (12-78); BILIRUBIN,TOTAL 0.3 MG/DL (0.2-1.0); BLOOD UREA NITROGEN 6 MG/DL (7-18); CALCIUM LEVEL 8.9 MG/DL (8.5-10.1); CARBON DIOXIDE LEVEL 31 MEQ/L (21-32); CHLORIDE LEVEL 106 MEQ/L (98-107); CREATININE FOR GFR 0.79 MG/DL (0.55-1.30); FERRITIN 4 NG/ML (8-252); FREE T4 0.92 NG/DL (0.76-1.46); GLOMERULAR FILTRATION RATE > 60.0 (>60); GLUCOSE, FASTING 116 MG/DL (70-100); IRON (FE) 27 UG/DL (50-170); POTASSIUM SERUM 3.8 MEQ/L (3.5-5.1); SODIUM LEVEL 139 MEQ/L (136-145); TOTAL IRON BINDING CAPACITY 539 UG/DL (250-450); TOTAL PROTEIN 7.8 GM/DL (6.4-8.2)
[2021-09-08 18:01] LABS: FOLATE 3.5 NG/ML; VITAMIN B12 LEVEL 1230 PG/ML
== END ==
LOC: M PLALAB 15:55
PROVIDERS: ATTEND Nurse Practitioner Adult Health
DX: D50.9 Iron deficiency anemia, unspecified (principal)

== ENCOUNTER 2021-09-23 08:25 | Outpatient (CLI) | payer BC ==
[~2021-09-23] VITALS: Ht 154.9 cm; Wt 68.2 kg
[2021-09-23] MEDS ORDERED: IRON SUCROSE 200 MG in NS 100 ML OVER 1 HR IV ONE (08:30)
[2021-09-23 08:47] VITALS: BP 121/70
[2021-09-23 10:25] VITALS: BP 94/59
== END 2021-09-23 10:25 | disposition home or self-care (01) ==
LOC: M INFU 08:25
PROVIDERS: ATTEND Nurse Practitioner Adult Health
DX: D50.9 Iron deficiency anemia, unspecified (principal)
CPT/HCPCS: 96365; J1756

== ENCOUNTER → 2022-05-13 | Outpatient (CLI) | payer BC ==
[2022-05-13 16:05] LABS: BASO # 0.1 10^3/uL (0.0-0.2); EOS # 0.1 10^3/uL (0.0-0.5); EOS % 1.3 % (0.0-3.0); HEMATOCRIT 35.6 % (36.0-47.0); HEMOGLOBIN 10.7 g/dl (12.0-15.5); LYMPH # 1.5 10^3/uL (1.5-5.0); LYMPH % 28.8 % (24.0-44.0); MEAN CORPUSCULAR HEMOGLOBIN 25.5 pg (27.0-33.0); MEAN CORPUSCULAR HGB CONC 30.1 g/dl (32.0-36.5); MEAN CORPUSCULAR VOLUME 84.8 fl (80.0-96.0); MONO # 0.4 10^3/uL (0.0-0.8); MONO % 6.9 % (2.0-8.0); NEUTROPHILS # 3.2 10^3/uL (1.5-8.5); NEUTROPHILS % 61.8 % (36.0-66.0); PLATELET COUNT, AUTOMATED 353 10^3/uL (150-450); WHITE BLOOD COUNT 5.2 10^3/uL (4.0-10.0)
[2022-05-13 17:19] LABS: ALBUMIN 3.6 GM/DL (3.2-5.2); ALT/SGPT 18 U/L (12-78); BILIRUBIN,TOTAL 0.3 MG/DL (0.2-1.0); BLOOD UREA NITROGEN 10 MG/DL (7-18); CALCIUM LEVEL 8.8 MG/DL (8.5-10.1); CARBON DIOXIDE LEVEL 26 MEQ/L (21-32); CHLORIDE LEVEL 107 MEQ/L (98-107); CREATININE FOR GFR 0.93 MG/DL (0.55-1.30); GLOMERULAR FILTRATION RATE > 60.0 (>60); GLUCOSE, FASTING 59 MG/DL (70-100); POTASSIUM SERUM 4.3 MEQ/L (3.5-5.1); SODIUM LEVEL 138 MEQ/L (136-145)
[2022-05-17 19:08] LABS: LEVETIRACETAM (KEPPRA) 15.4 ug/mL (10.0-40.0)
== END ==
LOC: M PLALAB 14:34
PROVIDERS: ATTEND Psychiatry & Neurology Neurology
DX: R51.9 Headache, unspecified (principal)

== ENCOUNTER → 2022-05-13 | Outpatient (CLI) | payer BC ==
[~2022-05-13] MED LIST changes: +ISOVUE-370 76% 100ML VIAL As Ordered ONE
== END ==
LOC: M RAD 15:21
PROVIDERS: ATTEND Nurse Practitioner Adult Health
DX: K11.8 Other diseases of salivary glands (principal)

== ENCOUNTER → 2022-09-06 | Outpatient (CLI) | payer BC ==
[~2022-09-06] MED LIST changes: -ISOVUE-370 76% 100ML VIAL As Ordered ONE
[2022-09-06 14:30] LABS: PERCENT SATURATION 3.1 % (13.2-45.0)
== END ==
LOC: M PLALAB 12:17
PROVIDERS: ATTEND Family Medicine
DX: D50.9 Iron deficiency anemia, unspecified (principal)

== ENCOUNTER 2022-09-17 13:45 | Outpatient (CLI) | payer BC ==
[~2022-09-17] VITALS: Ht 154.9 cm; Wt 68.1 kg
[~2022-09-17 13:45] MED LIST changes: +FERRIC CARBOXYMALTOSE INJ 750 MG in NS 250 ML (>50kg) IV ONE
[2022-09-17 14:25] VITALS: BP 123/70
[2022-09-17 15:20] VITALS: BP 128/66
== END 2022-09-17 15:50 | disposition home or self-care (01) ==
LOC: M INFU 13:45
PROVIDERS: ATTEND Nurse Practitioner Adult Health
DX: D50.9 Iron deficiency anemia, unspecified (principal)
CPT/HCPCS: 96365; J1439

== ENCOUNTER 2022-09-24 16:36 | Outpatient (CLI) | payer BC ==
[~2022-09-24] VITALS: Ht 154.9 cm; Wt 68.0 kg
[~2022-09-24 16:36] MED LIST changes: +NS 1,000 ML IV SCH
[2022-09-24 16:45] VITALS: BP 126/61
[2022-09-24] MEDS ORDERED: FERRIC CARBOXYMALTOSE INJ 750 MG in NS 250 ML (>50kg) IV ONE ×3 (17:00)
[2022-09-24] MEDS ORDERED: NS 1,000 ML IV SCH (17:00)
[2022-09-24 18:15] VITALS: BP 125/82
== END 2022-09-24 18:20 | disposition home or self-care (01) ==
LOC: M INFU 16:36
PROVIDERS: ATTEND Nurse Practitioner Adult Health
DX: D50.9 Iron deficiency anemia, unspecified (principal)
CPT/HCPCS: 96365; J1439

== ENCOUNTER 2022-10-25 08:32 | Emergency (ER) | payer BC ==
[~2022-10-25] VITALS: Ht 152.4 cm; Wt 61.6 kg
[~2022-10-25 08:32] MED LIST changes: -FERRIC CARBOXYMALTOSE INJ 750 MG in NS 250 ML (>50kg) IV ONE; -NS 1,000 ML IV SCH
[2022-10-25] MEDS ORDERED: SUMA25TA3 (08:42)
[2022-10-25] MEDS ORDERED: IBUP200T46 PO (08:42)
[2022-10-25] MEDS ORDERED: ZONI50CA11 (08:42)
[2022-10-25] MEDS ORDERED: D-AMPHETAMINE (08:42)
[2022-10-25] MEDS ORDERED: LEVE500T5 (08:42)
[2022-10-25] MEDS ORDERED: ACET-683 PO (08:42)
[2022-10-25 09:24] LABS: BASO % 0.3 % (0.0-1.0); EOS % 0.2 % (0.0-3.0); HEMOGLOBIN 13.3 g/dl (12.0-15.5); LYMPH # 1.5 10^3/uL (1.5-5.0); LYMPH % 10.4 % (24.0-44.0); MEAN CORPUSCULAR HEMOGLOBIN 27.6 pg (27.0-33.0); MEAN CORPUSCULAR HGB CONC 32.4 g/dl (32.0-36.5); MEAN CORPUSCULAR VOLUME 85.1 fl (80.0-96.0); MONO # 0.7 10^3/uL (0.0-0.8); MONO % 4.5 % (2.0-8.0); NEUTROPHILS # 12.4 10^3/uL (1.5-8.5); NEUTROPHILS % 84.2 % (36.0-66.0); PLATELET COUNT, AUTOMATED 341 10^3/uL (150-450); RED BLOOD COUNT 4.82 10^6/uL (4.00-5.40); WHITE BLOOD COUNT 14.7 10^3/uL (4.0-10.0)
[2022-10-25] MEDS ORDERED: ISOVUE-370 76% 100ML VIAL As Ordered ONE (09:38)
[2022-10-25 10:07] LABS: MONO SCRN NEGATIVE (NEGATIVE)
[2022-10-25] MEDS ORDERED: CLINDAMYCIN 600 MG in IV 1 EA IV ONE (10:45)
[2022-10-25] MEDS ORDERED: CLEO300C2 PO (12:00)
[2022-10-25] MEDS ORDERED: ACETAMINOPHEN 325MG/10.15ML UDC PO ONE (12:05)
[2022-10-25 12:14] VITALS: BP 114/87
== END 2022-10-25 12:14 | disposition home or self-care (01) ==
LOC: M ED 08:32
DX: J02.0 Streptococcal pharyngitis (principal); J36 Peritonsillar abscess; Z79.899 Other long term (current) drug therapy
CPT/HCPCS: 70491; 80047; 84702; 85025; 86308; 87040; 87880; 96365; 96375; 99284; J1100; Q9967; S0077

== ENCOUNTER → 2023-05-24 | Outpatient (REF) | payer BC ==
[~2023-05-24] MED LIST changes: +ACET-683 PO; +CLEO300C2 PO; +D-AMPHETAMINE; +IBUP200T46 PO; +LEVE500T5; +SUMA25TA3; +ZONI50CA11
[2023-05-24 19:15] LABS: BASO # 0.1 10^3/uL (0.0-0.2); BASO % 0.9 % (0.0-1.0); EOS # 0.3 10^3/uL (0.0-0.5); EOS % 3.9 % (0.0-3.0); HEMATOCRIT 43.7 % (36.0-47.0); HEMOGLOBIN 14.3 g/dl (12.0-15.5); LYMPH # 1.7 10^3/uL (1.5-5.0); LYMPH % 26.4 % (24.0-44.0); MEAN CORPUSCULAR HEMOGLOBIN 30.2 pg (27.0-33.0); MEAN CORPUSCULAR HGB CONC 32.7 g/dl (32.0-36.5); MEAN CORPUSCULAR VOLUME 92.2 fl (80.0-96.0); MONO # 0.4 10^3/uL (0.0-0.8); MONO % 6.7 % (2.0-8.0); NEUTROPHILS # 4.1 10^3/uL (1.5-8.5); NEUTROPHILS % 61.8 % (36.0-66.0); PLATELET COUNT, AUTOMATED 327 10^3/uL (150-450); RED BLOOD COUNT 4.74 10^6/uL (4.00-5.40); WHITE BLOOD COUNT 6.6 10^3/uL (4.0-10.0)
[2023-05-24 19:41] LABS: ALKALINE PHOSPHATASE 54 U/L (46-116); ALT/SGPT 18 U/L (7.0-40); AST/SGOT 13 U/L (<34); BILIRUBIN,TOTAL 0.3 MG/DL (0.3-1.2); BLOOD UREA NITROGEN 10 MG/DL (9-23); CALCIUM LEVEL 8.8 MG/DL (8.5-10.1); CARBON DIOXIDE LEVEL 24 MMOL/L (20-31); CHLORIDE LEVEL 105 MMOL/L (98-107); CREATININE FOR GFR 0.73 MG/DL (0.55-1.30); GLOMERULAR FILTRATION RATE > 60.0 (>60); GLUCOSE, FASTING 78 MG/DL (60-100); IRON (FE) 83 UG/DL (50-170); PERCENT SATURATION 23.4 % (13.2-45.0); POTASSIUM SERUM 3.9 MMOL/L (3.5-5.1); SODIUM LEVEL 138 MMOL/L (136-145); TOTAL IRON BINDING CAPACITY 354 UG/DL (250-425)
== END ==
LOC: M LAB REF 17:38
PROVIDERS: ATTEND Nurse Practitioner Adult Health
DX: D50.9 Iron deficiency anemia, unspecified (principal)

== ENCOUNTER → 2023-12-30 | Outpatient (REF) | payer OTHER ==
[2023-12-30 17:13] LABS: BASO # 0.1 10^3/uL (0.0-0.2); BASO % 0.8 % (0.0-1.0); EOS # 0.1 10^3/uL (0.0-0.5); EOS % 0.8 % (0.0-3.0); HEMATOCRIT 42.5 % (36.0-47.0); LYMPH # 1.6 10^3/uL (1.5-5.0); LYMPH % 24.6 % (24.0-44.0); MEAN CORPUSCULAR HEMOGLOBIN 29.7 pg (27.0-33.0); MEAN CORPUSCULAR HGB CONC 32.9 g/dl (32.0-36.5); MEAN CORPUSCULAR VOLUME 90.2 fl (80.0-96.0); MONO # 0.3 10^3/uL (0.0-0.8); MONO % 4.7 % (2.0-8.0); NEUTROPHILS # 4.5 10^3/uL (1.5-8.5); NEUTROPHILS % 68.6 % (36.0-66.0); PLATELET COUNT, AUTOMATED 335 10^3/uL (150-450); RED BLOOD COUNT 4.71 10^6/uL (4.00-5.40); WHITE BLOOD COUNT 6.6 10^3/uL (4.0-10.0)
[2023-12-30 17:23] LABS: PERCENT SATURATION 28.4 % (13.2-45.0)
[2023-12-30 17:25] LABS: FOLLICLE STIMULATING HORMONE 4.5 mIU/ML; LUTEINIZING HORMONE 3.1 mIU/ML
== END ==
LOC: M LAB REF 16:15
PROVIDERS: ATTEND Nurse Practitioner Adult Health
DX: D50.9 Iron deficiency anemia, unspecified (principal); R61 Generalized hyperhidrosis

== ENCOUNTER → 2024-09-17 | Outpatient (REF) | payer OTHER ==
[2024-09-17 14:18] LABS: BASO # 0.1 10^3/uL (0.0-0.2); BASO % 1.1 % (0.0-1.0); EOS # 0.3 10^3/uL (0.0-0.5); EOS % 3.5 % (0.0-3.0); HEMATOCRIT 41.6 % (36.0-47.0); HEMOGLOBIN 13.6 g/dl (12.0-15.5); LYMPH # 1.5 10^3/uL (1.5-5.0); MEAN CORPUSCULAR HEMOGLOBIN 28.8 pg (27.0-33.0); MEAN CORPUSCULAR HGB CONC 32.7 g/dl (32.0-36.5); MEAN CORPUSCULAR VOLUME 88.1 fl (80.0-96.0); MONO # 0.3 10^3/uL (0.0-0.8); MONO % 3.7 % (2.0-8.0); NEUTROPHILS # 6.6 10^3/uL (1.5-8.5); NEUTROPHILS % 74.5 % (36.0-66.0); PLATELET COUNT, AUTOMATED 390 10^3/uL (150-450); RED BLOOD COUNT 4.72 10^6/uL (4.00-5.40); WHITE BLOOD COUNT 8.8 10^3/uL (4.0-10.0)
[2024-09-17 14:43] LABS: BLOOD UREA NITROGEN 8 MG/DL (9-23); CARBON DIOXIDE LEVEL 30 MMOL/L (20-31); CHLORIDE LEVEL 102 MMOL/L (98-107); CREATININE FOR GFR 0.72 MG/DL (0.55-1.30); GLOMERULAR FILTRATION RATE > 60.0 (>60); GLUCOSE, FASTING 94 MG/DL (60-100); IRON (FE) 45 UG/DL (50-170); PERCENT SATURATION 10.7 % (13.2-45.0); POTASSIUM SERUM 4.1 MMOL/L (3.5-5.1); SODIUM LEVEL 139 MMOL/L (136-145); TOTAL IRON BINDING CAPACITY 420 UG/DL (250-425)
[2024-09-17 14:46] LABS: THYROID STIMULATING HORMONE 1.757 uIU/ML (0.55-4.78)
[2024-09-17 14:47] LABS: FREE T4 1.06 NG/DL (0.89-1.76)
== END ==
LOC: M LAB REF 12:28
PROVIDERS: ATTEND Nurse Practitioner Adult Health
DX: D50.9 Iron deficiency anemia, unspecified (principal); F41.1 Generalized anxiety disorder; E55.9 Vitamin D deficiency, unspecified; G40.89 Other seizures

== ENCOUNTER 2024-09-27 13:08 | Outpatient (CLI) | payer OTHER ==
[~2024-09-27] VITALS: Ht 154.9 cm; Wt 60.0 kg
[~2024-09-27 13:08] MED LIST changes: +ALBUTEROL SULFATE 2.5MG/0.5ML INH NEB SOLN INH PRN; +EPINEPHrine INJ 1 MG/ML 1ML AMP IM PRN; +diphenhydrAMINE 50MG/ML VIAL IV PRN; +methylPREDNISolone 125MG 2ML VIAL IV PRN
[2024-09-27 13:15] VITALS: BP 130/86; O2SAT 99
[2024-09-27] MEDS: FERRIC CARBOXYMALTOSE 750 MG (VIAL MATE) IN 100ML NS IV ONE (13:26)
[2024-09-27] MEDS ORDERED: NS (Normal Saline) 0.9% 1,000 ML IV SCH (13:30)
== END 2024-09-27 13:52 ==
LOC: M INFU 13:08
PROVIDERS: ATTEND Nurse Practitioner Adult Health
DX: D50.9 Iron deficiency anemia, unspecified (principal)
CPT/HCPCS: 96365; J1439

== ENCOUNTER → 2025-06-06 | Outpatient (REF) | payer OTHER ==
[~2025-06-06] MED LIST changes: -ALBUTEROL SULFATE 2.5MG/0.5ML INH NEB SOLN INH PRN; -EPINEPHrine INJ 1 MG/ML 1ML AMP IM PRN; -IBUP-1022 PO; +IBUP600T42 PO; +LAMO-18 PO; -LAMO25TA4 PO; -diphenhydrAMINE 50MG/ML VIAL IV PRN; -methylPREDNISolone 125MG 2ML VIAL IV PRN
[2025-06-06 17:50] LABS: C REACTIVE PROTEIN QUANTITATIV < 0.50 MG/DL (<1.0)
[2025-06-06 17:51] LABS: IRON (FE) 21 UG/DL (50-170); PERCENT SATURATION 5.9 % (13.2-45.0)
[2025-06-06 17:54] LABS: RHEUMATOID FACTOR QUANT < 3.5 IU/ML (<14)
== END ==
LOC: M LAB REF 17:20
PROVIDERS: ATTEND Physician Assistant Medical
DX: D50.9 Iron deficiency anemia, unspecified (principal); M25.50 Pain in unspecified joint; R21 Rash and other nonspecific skin eruption; R53.83 Other fatigue